=== PATIENT | male | born 1945 | race Caucasian/White ===

== ENCOUNTER → 2016-11-21 | Outpatient (REF) | payer MEDICARE, BC, OTHER ==
[~2016-11-21] MED LIST: ASPI1TAB PO; ATOR40TA PO; BENI20TA5 PO; BENI40TA5 PO; DEPA1TAB3 PO; DEPA500T2 PO; DIVA500T9 PO; FLOM5CAP PO; IRON1TAB PO; LEFL10TA2 PO; LIPI20TA PO; LUPR45IN IM; NORT25CA2 PO; PANT40TA2 PO; PLAV75TA38 PO; TYLE325T5 PO
== END | disposition home or self-care (01) ==
LOC: M LAB REF 12:30
PROVIDERS: ATTEND Internal Medicine Medical Oncology
DX: C18.9 Malignant neoplasm of colon, unspecified (principal)

== ENCOUNTER → 2017-02-13 | Outpatient (CLI) | payer MEDICARE, BC, OTHER | LOC: M SMT 09:09 | PROVIDERS: ATTEND Urology | DX: C61 Malignant neoplasm of prostate (principal) ==

== ENCOUNTER → 2017-02-28 | Outpatient (REF) | payer MEDICARE, OTHER | LOC: M SMT 13:00 | PROVIDERS: ATTEND Urology | DX: C61 Malignant neoplasm of prostate (principal); Z79.899 Other long term (current) drug therapy; Z79.82 Long term (current) use of aspirin; Z79.1 Long term (current) use of non-steroidal anti-inflammatories (NSAID) | CPT/HCPCS: 81001; 87086; 96372; G0463; J9217 ==

== ENCOUNTER → 2017-05-24 | Outpatient (REF) | payer MEDICARE, OTHER ==
[~2017-05-24] MED LIST changes: -ATOR40TA PO; +ATOR40TA75 PO; +BENI1TAB PO; -BENI20TA5 PO; +BENI40TA28 PO; -BENI40TA5 PO; +CALC600T31 PO; +COUM2.5T17 PO; +FLUO0.0216 TOP; +IRON65TA PO; +PERC5TAB12 PO; +PLAV1TAB2 PO; -PLAV75TA38 PO; +SUPETAB25 PO; +TYLE650T35 PO; +VITA1CAP7 PO
== END ==
LOC: M LAB REF 13:42
PROVIDERS: ATTEND Internal Medicine Medical Oncology
DX: C61 Malignant neoplasm of prostate (principal); C18.9 Malignant neoplasm of colon, unspecified

== ENCOUNTER → 2017-06-19 | Outpatient (CLI) | payer MEDICARE, BC, OTHER ==
--- NOTE | 2017-06-19 16:52 | REP ---
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 Recent CT of the chest abdomen and pelvis on 06/05/2017 identified two new lung nodules posteriorly in the upper lobe of the right lung. Whole-body scanning is performed from the skull base to the upper thighs. Neck and supraclavicular areas: There are no hypermetabolic foci. Chest: The two right upper lobe lung nodules demonstrate no radiotracer avidity. The superior most nodule demonstrates a maximum standard uptake value of 0.7. The nodule inferomedial to this demonstrates a standard uptake value of 0.67. There is an hypermetabolic focus in muscular tissue of the right upper arm lateral to the humeral shaft, likely within the triceps muscle with a standard uptake value of 4.9. This is nonspecific and could be related to muscular injury as well as neoplasm. There are no other foci in the chest. Abdomen, pelvis and upper thighs: There are no hypermetabolic foci. Specifically there are no hepatic foci. No skeletal foci are identified. There is non hypermetabolic uptake in the right quadriceps muscle with a standard uptake value of 2.4. Impression: The patient's two-view right lung nodules demonstrate no F D G uptake. There is muscular uptake in the left triceps and a in the right quadriceps, likely related to muscle injury although neoplasm cannot be entirely disregarded. There are no other hypermetabolic foci. The study is performed with 10 mCi of F 18 FDG. Signed by Marito Valiente MD 06/19/2017 04:44 P
== END ==
LOC: M PLARAD 12:26
PROVIDERS: ATTEND Internal Medicine Medical Oncology
DX: C18.9 Malignant neoplasm of colon, unspecified (principal); R91.8 Other nonspecific abnormal finding of lung field
CPT/HCPCS: 78815; A9552

== ENCOUNTER → 2017-08-07 | Outpatient (CLI) | payer MEDICARE, BC, OTHER ==
[2017-08-07 12:26] LABS: MEAN CORPUSCULAR HEMOGLOBIN 31.5 pg (27.0-33.0); MEAN CORPUSCULAR HGB CONC 32.6 g/dl (32.0-36.5); MEAN CORPUSCULAR VOLUME 96.7 fl (80.0-96.0); RED CELL DISTRIBUTION WIDTH 13.8 % (11.5-14.5); WHITE BLOOD COUNT 6.8 10^3/uL (4.0-10.0)
[2017-08-07 12:54] LABS: INR 0.87
[2017-08-07 13:08] LABS: ALBUMIN 3.9 GM/DL (3.2-5.2); ALBUMIN/GLOBULIN RATIO 1.11 (1.00-1.93); ALKALINE PHOSPHATASE 67 U/L (45-117); ALT/SGPT 25 U/L (12-78); ANION GAP 7 MEQ/L (8-16); AST/SGOT 24 U/L (15-37); BLOOD UREA NITROGEN 20 MG/DL (7-18); CARBON DIOXIDE LEVEL 30 MEQ/L (21-32); CHLORIDE LEVEL 102 MEQ/L (98-107); CREATININE FOR GFR 0.69 MG/DL (0.70-1.30); GLOMERULAR FILTRATION RATE > 60.0 (>42); GLUCOSE, FASTING 98 MG/DL (83-110); POTASSIUM SERUM 4.3 MEQ/L (3.5-5.1); SODIUM LEVEL 139 MEQ/L (136-145); TOTAL PROTEIN 7.4 GM/DL (6.4-8.2)
--- NOTE | 2017-08-07 13:49 | REP ---
Chest x-ray: Two views. History: History of stroke. Comparison chest x-ray September 02, 2015. Findings: The lungs are well inflated, but clear. Pleural angles are sharp. Heart is not enlarged. Pulmonary vasculature is not increased. There are mild degenerative changes in the thoracic spine as before. Impression: No active disease. Signed by Twan James MD 08/07/2017 03:33 P
--- NOTE | 2017-08-07 20:23 | ECGEPIP ---
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
== END ==
LOC: M ADMPAT 10:25
PROVIDERS: ATTEND Orthopaedic Surgery
DX: Z01.818 Encounter for other preprocedural examination (principal); M16.11 Unilateral primary osteoarthritis, right hip; I45.10 Unspecified right bundle-branch block; Z79.899 Other long term (current) drug therapy

== ENCOUNTER → 2017-08-09 | Outpatient (CLI) | payer MEDICARE, BC, OTHER | LOC: M SMT 10:40 | PROVIDERS: ATTEND Urology | DX: C61 Malignant neoplasm of prostate (principal) ==

== ENCOUNTER 2017-08-20 08:45 | Inpatient (IN) | payer MEDICARE, BC, OTHER ==
[2017-08-07 11:42] VITALS: BP 126/86
--- NOTE | 2017-08-16 14:48 | HPE ---
DATE OF ADMISSION: 08/20/2017 ATTENDING PHYSICIAN: Dr. Robyn Cyr ADMISSION DIAGNOSIS: Osteoarthritis right hip and right hip pain and stiffness. HISTORY: This is a 72-year-old male patient with progressively worsening right hip pain and stiffness. He has failed to improve with conservative management. He has elected for surgery for his continued symptoms. He has pain with weightbearing activities and activities of daily living. X-rays notable for end-stage degenerative changes of the left hip. He has consented for left total hip arthroplasty by Dr. Cyr. ALLERGIES: No known drug allergies. CURRENT MEDICATIONS: - Leflunomide 20 mg one tablet once per day - aspirin 81 mg one tablet once per day - atorvastatin 20 mg one tablet once per day - Benicar 20 mg one tablet once per day - nortriptyline 25 mg one tablet in the evening - Lupron depot one tablet every 3 months for 3 years - fluorouracil one tablet once per month - iron 325 mg one tablet once per day - over the counter vitamin D3, vitamin B, calcium with vitamin D and vitamin K - Depakote 500 mg one tablet twice a day - Flomax 0.4 mg one tablet once per day - Plavix 75 mg one tablet every day - Tylenol as needed for pain MEDICAL HISTORY: Includes: 1. Lumbar degenerative disc disease. 2. Symptomatic osteoarthritis of the right hip. 3. History of prostate cancer in 2014. 4. History of colon cancer in 2013. 5. Hypertension. 6. History of a CVA in 2006. 7. Chronic back pain. PAST SURGICAL HISTORY Includes lumbar fusion. Colon, rectal and prostate radiation. Colonoscopy. Colectomy. FAMILY HISTORY: Noncontributory. REVIEW OF SYSTEMS: Denies fevers or chills. Denies chest pain, shortness breath or cough. Denies difficulty breathing. Denies abdominal pain. Denies nausea or vomiting. Denies recent upper respiratory infection or urinary tract infection (UTI) symptoms. Has persistent pain in his right hip with weightbearing activities and activities of daily living. PHYSICAL EXAMINATION: Today reveals an elderly male patient who ambulates with a slow gait and slightly favors his right side. There is irritability with hip range of motion on the right side. Skin is intact with no erythema, edema or ecchymosis. Straight leg raise testing is negative. Well-perfused right lower extremity. Neck is supple without adenopathy or jugular venous distention (JVD) . Lungs are clear to auscultation without rales or wheeze. Heart has regular rate and rhythm. Abdomen, bowel sounds are present. VITAL SIGNS: Blood pressure 142/78, pulse 80, temperature 98.7, respirations 14, height 72 inches, weight 230 pounds. LABORATORY DATA: WBC count 6.8, RBC count of 4.5, hemoglobin 14.3, hematocrit 43.4, glucose 98, BUN 20, creatinine 0.69. Sodium 139, potassium 4.3. Urine culture no growth. Sed rate of 10. Urinalysis trace ketones, otherwise unremarkable. Nasal cultures positive for Staphylococcus aureus, he was treated per the protocol. Medical optimization by Didier Hodges is not present for review today. IMPRESSION: Symptomatic osteoarthritis right hip. PLAN: Consented for right total hip arthroplasty by Dr. Cyr.
[~2017-08-20] VITALS: Ht 185.4 cm; Wt 103.0 kg
[~2017-08-20 08:45] MED LIST changes: -COUM2.5T17 PO; -PERC5TAB12 PO
[2017-08-20] MEDS ORDERED: LR 1,000 ML IV ONE (10:00)
[2017-08-20] MEDS ORDERED: ACETAMINOPHEN 500 MG TAB PO ONE (10:00)
[2017-08-20] MEDS ORDERED: PROPOFOL 200 MG/20 ML VIAL As Ordered ONE ×2 (10:18→13:17)
[2017-08-20] MEDS ORDERED: dexameTHASONE 4 MG/ML 1ML VIAL (J1100) As Ordered ONE (10:18)
[2017-08-20] MEDS ORDERED: LIDOCAINE 2% INJ 100 MG/5 ML SDV (FOR ANES.) As Ordered ONE (10:18)
[2017-08-20] MEDS ORDERED: ONDANSETRON 4MG/2ML VIAL (J2405) As Ordered ONE (10:18)
[2017-08-20] MEDS ORDERED: fentaNYL 100 MCG/2 ML INJECTION (J3010) As Ordered ONE (10:22)
[2017-08-20] MEDS ORDERED: MIDAZOLAM INJ 2 MG/2 ML VIAL (J2250) As Ordered ONE (10:22)
[2017-08-20] MEDS ORDERED: ceFAZolin 1GM INJ (J0690) As Ordered ONE (11:33)
[2017-08-20] MEDS ORDERED: PHENYLephrine HCL 500 MCG/5 ML (100MCG/ML) SYRINGE (J2370) As Ordered ONE (13:15)
[2017-08-20] MEDS: LR 1,000 ML IV SCH ×2 (15:00→23:35)
[2017-08-20] MEDS ORDERED: MORPHINE 1MG/ML IN 0.9% NACL 100ML IV BAG IV PRN (15:00)
[2017-08-20] MEDS ORDERED: EPIDURAL/PCA KEYS XX PRN (15:00)
[2017-08-20] MEDS ORDERED: NALBUPHINE HCL 10 MG/ML AMP (J2300) IV PRN (15:00)
[2017-08-20] MEDS ORDERED: ONDANSETRON 4MG/2ML VIAL (J2405) IV PRN ×2 (15:00→15:15)
[2017-08-20] MEDS ORDERED: NALOXONE INJ 0.4 MG/1 ML VIAL (J2310) IV PRN (15:00)
[2017-08-20] MEDS ORDERED: diphenhydrAMINE INJ 50MG/ML VIAL (J1200) IV PRN (15:00)
[2017-08-20] MEDS ORDERED: fentaNYL 100 MCG/2 ML INJECTION (J3010) IV PRN (15:15)
[2017-08-20] MEDS ORDERED: HYDROmorphone HCL 1 MG/ML SYRINGE (J1170) IV PRN (15:15)
[2017-08-20] MEDS ORDERED: FLEET ENEMA PR PRN (15:15)
[2017-08-20] MEDS ORDERED: LR 1,000 ML IV SCH (15:15)
[2017-08-20] MEDS ORDERED: ACETAMINOPHEN TAB 650MG DOSE (2X325MG) PO PRN (15:15)
[2017-08-20] MEDS ORDERED: PERCOCET 5MG/325MG TAB PO PRN (15:15)
--- NOTE | 2017-08-20 15:43 | CR.PDOC ---
[facility] Consultation Consultation CONSULTATION REPORT FOR: Dr Molina REASON FOR CONSULTATION: Medical Management DATE OF VISIT: 08/20/17 ATTENDING: PCP: Tiffany CURTIS HPI: 72year old M POD #0 Rt hip CELE as per Orthopedics. No acute medical complaints at this time. Patient states pain is controlled. Denies any fevers, chills, weakness, fatigue, Headache, Chest Pain, Shortness of breath, cough, palpitations, abdominal pain, N/V/D or changes in bowel or bladder habits. Consultation is requested for medical management. PMHx: HYPERTENSION VITAMIN D DEFICIENCY PSORIASIS DEMENTIA DERMATITIS LOW BACK PAIN HYPERLIPIDEMIA RHEUMATOID ARTHRITIS. Dr Kennedi Tejada. HX OF CVA 2008. Follows with Dr Beard. H/O Seizure. Dr Beard. PROSTATE CANCER. EBRT. On Lupron. Follows with Urology, Dr Goldberg. 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 Colonoscopy 10/20 Foremost. 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 PE: GEN: 72 yo M, appears stated age. No acute distress. Alert and oriented x 3. Pleasant, interactive. HEENT: Normocephalic, atraumatic. Extraocular movements are intact. No nystagmus appreciated. Sclera are nonicteric. Conjunctiva without injection. Nose midline. No facial asymmetry. Moist mucous membranes. Neck supple, trachea midline. No lymphadenopathy or thyromegaly appreciated. CHEST: Regular rate and rhythm, +S1, +S2 LUNGS: Clear to auscultation bilaterally. No wheezes, rales, or rhonchi. Breathing appears symmetric and easy. Patient is speaking in full sentences. No accessory muscle use. ABD: Round, soft, non-tender, non-distended. +Bowel sounds throughout. No rebound or guarding. No costovertebral angle tenderness. EXT: No lower extremity edema appreciated. SKIN: [place], dry, warm. Capillary refill <2sec. No rashes. Dressing intact Rt hip. NEURO: No focal deficits appreciated. EKG 08/07/17 SINUS RHYTHM INCOMPLETE RIGHT BUNDLE BRANCH BLOCK INCOMPLETE Right bundle branch block IS NEW SINCE 09/02/15 A&P: 72year old M POD #0 Rt hip CELE as per Orthopedics. Pt will be followed by Dr Jorge. Pt is discussed with Dr Clemons. 1. POD #0 Rt hip CELE. Management as per orthopedics. Pain control as per orthopedics. Bowel care as per orthopedics. DVT prophylaxis. As per orthopedics. PT/OT as per orthopedics. 2. Hypertension. Benicar/HCTZ temporarily on hold. Blood pressure is noted to be 132/66. Likely restart in a.m. 3. Dyslipidemia. Continue statin. 4. History of CVA. Aspirin and Plavix currently on hold. Coumadin as per orthopedics as noted above. 5. History of seizure. Follows with neurology, Dr beard. Continue Depakote 500 mg by mouth twice a day. Add Depakote level to a.m. labs. 6. History of prostate cancer. Follows with urology. Continue Flomax 0.4 mg daily. Patient remains on Lupron as per urology Q6mo. 7. History of colon cancer. 8. Rheumatoid arthritis. Follows with rheumatology, Dr Kolb, at [facility]. Will allow home medication use, Leflunomide 20 mg po daily. Thank you for your consultation. We will continue to follow along with you. Vital Signs/I&O Vital Signs Date Time Temp Pulse Resp B/P (MAP) Pulse Ox O2 Delivery O2 Flow Rate FiO2 08/20/17 15:15 63 18 132/66 (88) 99 Nasal Cannula 2 08/20/17 14:41 96.9 I&O- Last 24 Hours up to 6 AM 08/21/17 06:00 Intake Total 1790 ml Output Total 600 ml Balance 1190 ml Laboratory Data Labs 24H Item Value Date Time White Blood Count 6.8 10^3/uL 08/07/17 1148 Red Blood Count 4.54 10^6/uL 08/07/17 1148 Hemoglobin 14.3 g/dl 08/07/17 1148 Hematocrit 43.9 % 08/07/17 1148 Mean Corpuscular Volume 96.7 fl H 08/07/17 1148 Mean Corpuscular Hemoglobin 31.5 pg 08/07/17 1148 Mean Corpuscular Hemoglobin Concent 32.6 g/dl 08/07/17 1148 Red Cell Distribution Width 13.8 % 08/07/17 1148 Platelet Count 262 10^3/uL 08/07/17 1148 Sodium Level 139 MEQ/L 08/07/17 1148 Potassium Level 4.3 MEQ/L 08/07/17 1148 Chloride Level 102 MEQ/L 08/07/17 1148 Carbon Dioxide Level 30 MEQ/L 08/07/17 1148 Anion Gap 7 MEQ/L L 08/07/17 1148 Blood Urea Nitrogen 20 MG/DL H 08/07/17 1148 Creatinine 0.69 MG/DL L 08/07/17 1148 Glomerular Filtration Rate > 60.0 08/07/17 1148 Fasting Glucose 98 MG/DL 08/07/17 1148 Calcium Level 10.0 MG/DL 08/07/17 1148 Total Bilirubin 1.0 MG/DL 08/07/17 1148 Aspartate Amino Transf (AST/SGOT) 24 U/L 08/07/17 1148 Alanine Aminotransferase (ALT/SGPT) 25 U/L 08/07/17 1148 Alkaline Phosphatase 67 U/L 08/07/17 1148 Total Protein 7.4 GM/DL 08/07/17 1148 Albumin 3.9 GM/DL 08/07/17 1148 Albumin/Globulin Ratio 1.11 08/07/17 1148 Prostate Specific Antigen < 0.01 NG/ML 08/09/17 1041 Allergies Coded Allergies: No Known Allergies (Verified , 12/03/07) Home Medications Scheduled (Benicar Hct 40-12.5 mg) 1 Tab Tab, 0.5 TAB PO DAILY, (Reported) (Super B Complex Maxi) 1 Tab Tab, 1 TAB PO DAILY, (Reported) (Iron) 325 Mg Tab, 325 MG PO QHS, (Reported) (Fluorouracil) 0.5 % Cre, 0.5 % TOP ASDIRECTED, (Reported) Acetaminophen (Tylenol 8 Hour Arthritis) 650 Mg Tab, 1,300 MG PO Q8H, (Reported) Aspirin (Aspirin 81) 81 Mg Tab, 81 MG PO QPM, (Reported) Atorvastatin Calcium (Atorvastatin Calcium) 40 Mg Tab, 20 MG PO QPM, (Reported) Calcium (Calcium) 600 Mg Tab, 600 MG PO DAILY, (Reported) Cholecalciferol (Vitamin D3 Maximum Streng) 5,000 Unit Cap, 5,000 UNIT PO DAILY, (Reported) Clopidogrel Bisulfate (Plavix) 75 Mg Tab, 75 MG PO DAILY, (Reported) Divalproex Sodium (Depakote ER) 500 Mg Tab, 500 MG PO BID, (Reported) Leflunomide (Leflunomide) 10 Mg Tab, 20 MG PO DAILY, (Reported) Leuprolide Acetate (Lupron Depot) 45 Mg Inj, 45 MG IM ASDIRECTED, (Reported) EVERY 6 MONTHS Nortriptyline HCl (Nortriptyline HCl) 25 Mg Cap, 25 MG PO QPM, (Reported) Tamsulosin Hydrochloride (Flomax) 0.4 Mg Cap, 0.4 MG PO QPM, (Reported) Lise Garcia Aug 20, 2017 15:43
[2017-08-20 16:00] VITALS: BP 165/82
[2017-08-20 16:30] VITALS: BP 160/85
--- NOTE | 2017-08-20 16:44 | RO ---
DATE OF PROCEDURE: 08/20/2017 PREPROCEDURE DIAGNOSIS: Right hip osteoarthritis. POSTPROCEDURE DIAGNOSIS: Right hip osteoarthritis. PROCEDURE: Right total hip arthroplasty using a high offset #8 [place] stem with a +5 neck and a 36 head with a 58 [place] cup, neutral liner, polyethylene. Components were made by [employer]. SURGEON: Dr. Robyn Cyr JAMMER OPERATOR: Mr. Navid John ANESTHESIA: Spinal. ESTIMATED BLOOD LOSS: 200 mL. COMPLICATIONS: None. SPECIMENS: Femoral head. DESCRIPTION OF PROCEDURE: Antibiotics were given intravenously preoperatively, then a successful spinal anesthetic was induced. He was then placed in a lateral decubitus position and his May hip positioner was utilized, down leg well padded, especially the peroneal nerve. Axillary roll was utilized. Right hip area was carefully prepped and draped in the usual sterile fashion and after appropriate time-out, a longitudinal incision was made for a direct lateral approach to the hip, Bovie cautery was used to coagulate crossing vessels down to the tensor fascia, which was then divided in line with the skin incision. We split the gluteus medius anterior one-third, posterior two-third junction and then divided the underlying gluteus minimus and anterior hip capsule and carefully dissected off the proximal femur as we then dislocated the hip anteriorly and placed the leg in a leg bag. Piriformis fossa was identified. Starting reamer was used to open that area, followed by the canal finder reamer, then the lateralizing reamer. Then, we reamed up to a size #8 reamer and then a femoral neck osteotomy was performed. We then used the calcar planer and then began broaching to a size #8 broach, and it was just on the edge of going up to a size #9. I looked at a #9, but clearly there was much more proximal fill and feared that would not fit, possibly fracturing the femur. I stuck with the #8. We then exposed the acetabulum, performed a labral excision 360 degrees, and once we had adequate exposure, began reaming with a 48 mm reamer down to the teardrop to make sure that we were down to the floor of the acetabulum, then expanded up to 57 mm with 1 mm increments. Trial 58 cup fit nicely using the extramedullary alignment jig to help set our version and abduction. We then copiously irrigated out as we did several times throughout the operation, then placed the real #58 cup, which fit very nicely using the extramedullary alignment jig. Central hole eliminator was placed, followed by the polyethylene that fit nicely. We then irrigated out the femoral canal, placed a #8 broach, trialed with a +1.5 neck standard offset with a 36 head. The cup was in good position. It was actually quite stable to flexion, internal rotation with adduction as well as extension, external rotation, but we needed more offset and more length and I trialed with a +5 neck length with a high offset neck and he had excellent stability and good soft tissue tension. I felt that was the appropriate size components to use. Thus, we removed all of the trial components, copiously pulsatile lavage irrigated out the entire wound, including the femoral canal, then placed the real #8 stem, dried the trunnion, placed the 36 by +5 neck on the trunnion, then reduced the hip. We then closed the gluteus medius and anterior hip capsule with the gluteus minimus back anatomically with interrupted #1 PDS sutures. We then irrigated copiously, then closed the distal aspect of the tensor fascia with two #1 PDS sutures, followed by a running #1 Stratafix, irrigated between layers, closed the deep subdermal tissues with interrupted #2-0 PDS sutures, skin was closed with brynn, covered by Adaptic dry sterile bulky dressing. He was then turned supine and transferred to the recovery room in stable condition. There were no intraoperative complications. Mr. Navid John was critical to the success of the operation by helping with manipulating the leg and dislocating it and relocating the hip several times throughout the operation, helped with soft tissue retraction, helped to close the wound amongst many other tasks.
[2017-08-20] MEDS ORDERED: WARFARIN SOD 5 MG TAB PO ONE (17:00)
[2017-08-20 17:30] VITALS: BP 144/88
[2017-08-20 18:30] VITALS: BP 147/92
[2017-08-20 20:15] VITALS: BP 149/85
[2017-08-20] MEDS: ATORVASTATIN 20 MG TAB PO SCH (21:30)
[2017-08-20] MEDS: DIVALPROEX 500MG *ER* TAB PO SCH (21:30)
[2017-08-20] MEDS: TAMSULOSIN 0.4 MG CAP PO SCH (21:30)
[2017-08-21 00:15] VITALS: BP 136/86
[2017-08-21 04:15] VITALS: BP 138/88
[2017-08-21] MEDS ORDERED: ONDANSETRON 4 MG TAB (S0181) PO PRN (07:00)
[2017-08-21] MEDS ORDERED: PERCOCET 5MG/325MG TAB PO PRN (07:00)
[2017-08-21 07:16] LABS: MEAN CORPUSCULAR HGB CONC 33.1 g/dl (32.0-36.5); MEAN CORPUSCULAR VOLUME 96.7 fl (80.0-96.0); PLATELET COUNT, AUTOMATED 236 10^3/uL (150-450); RED CELL DISTRIBUTION WIDTH 13.6 % (11.5-14.5); WHITE BLOOD COUNT 12.4 10^3/uL (4.0-10.0)
[2017-08-21 07:18] LABS: ADD MANUAL DIFFER YES; DIFF SLIDE NUMBER 83; POSITIVE DIFF POS FLAG
[2017-08-21 07:28] LABS: INR 1.01
[2017-08-21 07:49] LABS: ANISOCYTOSIS 1+; BASOPHILS 2 % (0-4); EOSINOPHILS 2 % (0-5)
[2017-08-21 07:52] LABS: ALBUMIN 3.1 GM/DL (3.2-5.2); ALBUMIN/GLOBULIN RATIO 0.97 (1.00-1.93); ALKALINE PHOSPHATASE 51 U/L (45-117); ALT/SGPT 22 U/L (12-78); ANION GAP 5 MEQ/L (8-16); AST/SGOT 35 U/L (15-37); BILIRUBIN,TOTAL 0.7 MG/DL (0.2-1.0); BLOOD UREA NITROGEN 15 MG/DL (7-18); CALCIUM LEVEL 8.7 MG/DL (8.8-10.2); CARBON DIOXIDE LEVEL 30 MEQ/L (21-32); CHLORIDE LEVEL 105 MEQ/L (98-107); CREATININE FOR GFR 0.73 MG/DL (0.70-1.30); GLOMERULAR FILTRATION RATE > 60.0 (>42); GLUCOSE, FASTING 144 MG/DL (83-110); SODIUM LEVEL 140 MEQ/L (136-145); TOTAL PROTEIN 6.3 GM/DL (6.4-8.2)
[2017-08-21 10:00] VITALS: BP 141/93
--- NOTE | 2017-08-21 10:49 | REP ---
RIGHT HIP, THREE VIEWS: HISTORY: Hip replacement. The patient is status post right total hip replacement. There is no acute fracture or dislocation. IMPRESSION: The patient is status post right total hip replacement. There is anatomic alignment. Signed by Karson Cannon MD 08/21/2017 10:51 A
[2017-08-21] MEDS: DIVALPROEX 500MG *ER* TAB PO SCH ×2 (11:06→20:20)
[2017-08-21] MEDS: MOM 30ML SUSPENSION UDC PO SCH (11:07)
[2017-08-21] MEDS: SENOKOT S TAB PO SCH ×2 (11:07→20:22)
[2017-08-21] MEDS: LEFLUNOMIDE 20MG TABLET (PATIENT'S OWN MED) PO SCH (11:07)
[2017-08-21] MEDS: MIRALAX *UNIT DOSE* 17GM PACKET PO SCH (11:07)
[2017-08-21] MEDS: PERCOCET 5MG/325MG TAB PO PRN ×3 (11:08→20:21)
[2017-08-21 14:00] VITALS: BP 115/57
[2017-08-21] MEDS ORDERED: WARFARIN SOD 5 MG TAB PO ONE (17:00)
[2017-08-21] MEDS: ATORVASTATIN 20 MG TAB PO SCH (20:21)
[2017-08-21] MEDS: TAMSULOSIN 0.4 MG CAP PO SCH (20:22)
[2017-08-21 22:00] VITALS: BP 144/63
[2017-08-22] MEDS: PERCOCET 5MG/325MG TAB PO PRN ×3 (02:04→21:29)
[2017-08-22 06:00] VITALS: BP 122/78
[2017-08-22 07:00] LABS: MEAN CORPUSCULAR HEMOGLOBIN 31.1 pg (27.0-33.0); MEAN CORPUSCULAR HGB CONC 32.1 g/dl (32.0-36.5); RED CELL DISTRIBUTION WIDTH 13.7 % (11.5-14.5); WHITE BLOOD COUNT 12.5 10^3/uL (4.0-10.0)
[2017-08-22 07:11] LABS: INR 1.25
[2017-08-22 07:17] LABS: ANION GAP 3 MEQ/L (8-16); BLOOD UREA NITROGEN 16 MG/DL (7-18); CALCIUM LEVEL 8.5 MG/DL (8.8-10.2); CARBON DIOXIDE LEVEL 33 MEQ/L (21-32); CHLORIDE LEVEL 103 MEQ/L (98-107); CREATININE FOR GFR 0.71 MG/DL (0.70-1.30); GLOMERULAR FILTRATION RATE > 60.0 (>42); GLUCOSE, FASTING 141 MG/DL (83-110); SODIUM LEVEL 139 MEQ/L (136-145)
[2017-08-22] MEDS: SENOKOT S TAB PO SCH ×2 (09:00→21:28)
[2017-08-22] MEDS: MIRALAX *UNIT DOSE* 17GM PACKET PO SCH (09:00)
[2017-08-22] MEDS ORDERED: INFLUENZA VIRUS VACCINE HIGH DOSE 0.5 ML SYRINGE (90662) IM ONE (09:00)
[2017-08-22] MEDS: LEFLUNOMIDE 20MG TABLET (PATIENT'S OWN MED) PO SCH (09:34)
[2017-08-22] MEDS: DIVALPROEX 500MG *ER* TAB PO SCH ×2 (09:34→21:28)
[2017-08-22] MEDS: MOM 30ML SUSPENSION UDC PO SCH (09:38)
[2017-08-22 14:00] VITALS: BP 152/72
[2017-08-22] MEDS ORDERED: WARFARIN SOD 7.5 MG TAB PO ONE (17:00)
[2017-08-22] MEDS: TAMSULOSIN 0.4 MG CAP PO SCH (21:28)
[2017-08-22] MEDS: ATORVASTATIN 20 MG TAB PO SCH (21:28)
[2017-08-22 22:00] VITALS: BP 124/77
[2017-08-23] MEDS: PERCOCET 5MG/325MG TAB PO PRN (05:55)
[2017-08-23 06:00] VITALS: BP 130/79
[2017-08-23 07:14] LABS: MEAN CORPUSCULAR HEMOGLOBIN 31.6 pg (27.0-33.0); MEAN CORPUSCULAR HGB CONC 32.2 g/dl (32.0-36.5); MEAN CORPUSCULAR VOLUME 98.3 fl (80.0-96.0); RED CELL DISTRIBUTION WIDTH 13.9 % (11.5-14.5)
[2017-08-23 07:23] LABS: INR 1.18
[2017-08-23 07:25] LABS: ANION GAP 6 MEQ/L (8-16); BLOOD UREA NITROGEN 17 MG/DL (7-18); CALCIUM LEVEL 8.4 MG/DL (8.8-10.2); CARBON DIOXIDE LEVEL 31 MEQ/L (21-32); CHLORIDE LEVEL 100 MEQ/L (98-107); CREATININE FOR GFR 0.66 MG/DL (0.70-1.30); GLOMERULAR FILTRATION RATE > 60.0 (>42); GLUCOSE, FASTING 147 MG/DL (83-110); SODIUM LEVEL 137 MEQ/L (136-145)
[2017-08-23] MEDS ORDERED: ENOXAPARIN 40 MG/0.4 ML SYRINGE (J1650) SC ONE (08:45)
[2017-08-23] MEDS ORDERED: PERC5TAB12 PO (08:50)
[2017-08-23] MEDS ORDERED: COUM2.5T17 PO (08:50)
[2017-08-23] MEDS: MIRALAX *UNIT DOSE* 17GM PACKET PO SCH (09:00)
[2017-08-23] MEDS: MOM 30ML SUSPENSION UDC PO SCH (09:00)
[2017-08-23] MEDS: SENOKOT S TAB PO SCH (10:13)
[2017-08-23] MEDS: LEFLUNOMIDE 20MG TABLET (PATIENT'S OWN MED) PO SCH (10:14)
[2017-08-23] MEDS: DIVALPROEX 500MG *ER* TAB PO SCH (10:14)
--- NOTE | 2017-08-28 16:31 | DSES ---
DATE OF ADMISSION: 08/20/2017 DATE OF DISCHARGE: 08/23/2017 ATTENDING PHYSICIAN: Dr Robyn Cyr ADMITTING DIAGNOSIS: Right hip arthritis. OTHER DIAGNOSES: 1. Lumber degenerative disc disease. 2. History of prostate cancer. 3. History of colon cancer. 4. Hypertension. 5. History of cerebrovascular accident. DISCHARGE DIAGNOSIS: Right hip osteoarthritis status post right total hip arthroplasty. HISTORY: Patient is a 72-year-old male with progressively worsening right hip pain and stiffness. He failed to improve with conservative measures. He continues to have symptoms with weightbearing activities and activities of daily living. He consented for an elective right total hip arthroplasty with Dr. Cyr. OPERATION PERFORMED: Right total hip arthroplasty. HOSPITAL COURSE: The patient underwent a right total hip arthroplasty under spinal anesthesia, which as uneventful. His hospital course was without complication, and he was up with physical therapy per their protocol, weightbearing as tolerated on the right lower extremity. He was discharged on oral pain medications and will resume his preoperative medications and diet. He will continue to take his Coumadin and use his thromboembolic deterrent stockings for 30 days postoperatively to prevent deep vein thrombosis. Patient will followup in our office in 12-14 days for a wound check and staple removal. He agrees to contact our office sooner if there is any increased pain, drainage, redness, numbness and tingling, fever greater than 101 degrees, or any other concerns. Please see medical record for additional details. DANIEL
== END 2017-08-23 15:10 | disposition home health service (06) | DRG 470 ==
LOC: M OR 09:43 → M MS5PR 15:45
PROVIDERS: ADMIT Orthopaedic Surgery; ATTEND Orthopaedic Surgery
PROC: 0SR902Z Replacement of Right Hip Joint with Metal on Polyethylene Synthetic Substitute, Open Approach (ICD-10-PCS; principal; 2017-08-20 12:30)
DX: M16.11 Unilateral primary osteoarthritis, right hip (principal); M51.36 Other intervertebral disc degeneration, lumbar region; I10 Essential (primary) hypertension; E78.5 Hyperlipidemia, unspecified; M06.9 Rheumatoid arthritis, unspecified; L40.9 Psoriasis, unspecified; E55.9 Vitamin D deficiency, unspecified; Z86.73 Personal history of transient ischemic attack (TIA), and cerebral infarction without residual deficits; Z79.82 Long term (current) use of aspirin; Z79.02 Long term (current) use of antithrombotics/antiplatelets; Z79.899 Other long term (current) drug therapy; Z98.1 Arthrodesis status; Z90.49 Acquired absence of other specified parts of digestive tract; Z85.46 Personal history of malignant neoplasm of prostate; Z85.038 Personal history of other malignant neoplasm of large intestine; Z92.3 Personal history of irradiation; Z85.828 Personal history of other malignant neoplasm of skin

== ENCOUNTER → 2017-08-24 | Outpatient (REF) | payer MEDICARE, OTHER ==
[~2017-08-24] MED LIST changes: +COUM2.5T17 PO; +PERC5TAB12 PO
[2017-08-24 13:28] LABS: INR 1.32
== END ==
LOC: M SHH 13:01
PROVIDERS: ATTEND Nurse Practitioner Family
DX: Z51.81 Encounter for therapeutic drug level monitoring (principal); Z79.01 Long term (current) use of anticoagulants

== ENCOUNTER → 2017-11-28 | Outpatient (REF) | payer MEDICARE, OTHER ==
[2017-11-28 20:54] LABS: PROSTATIC SPECIFIC AG MONITOR < 0.01 NG/ML (< 4.0)
[2017-11-30 10:30] LABS: CARCINOEMBRYONIC ANTIGEN 0.7 NG/ML (<2.5)
== END ==
LOC: M LAB REF 17:48
DX: C18.2 Malignant neoplasm of ascending colon (principal); C61 Malignant neoplasm of prostate; Z84.81 Family history of carrier of genetic disease
CPT/HCPCS: 82378

== ENCOUNTER → 2017-12-04 | Outpatient (CLI) | payer MEDICARE, OTHER, BC ==
[~2017-12-04] MED LIST changes: -ASPI1TAB PO; -ATOR40TA75 PO; -BENI1TAB PO; -BENI40TA28 PO; -CALC600T31 PO; -COUM2.5T17 PO; -DEPA1TAB3 PO; -DEPA500T2 PO; -DIVA500T9 PO; -FLOM5CAP PO; -FLUO0.0216 TOP; -IRON1TAB PO; -IRON65TA PO; +ISOVUE-370 76% 100ML VIAL (Q9967) As Ordered; -LEFL10TA2 PO; -LIPI20TA PO; -LUPR45IN IM; -NORT25CA2 PO; -PANT40TA2 PO; -PERC5TAB12 PO; -PLAV1TAB2 PO; -SUPETAB25 PO; -TYLE325T5 PO; -TYLE650T35 PO; -VITA1CAP7 PO
== END ==
LOC: M RAD 07:19
DX: C18.9 Malignant neoplasm of colon, unspecified (principal); R91.8 Other nonspecific abnormal finding of lung field
CPT/HCPCS: Q9967

== ENCOUNTER → 2018-03-18 | Outpatient (REF) | payer MEDICARE, OTHER ==
[2018-03-18 14:41] LABS: PROSTATIC SPECIFIC AG MONITOR < 0.01 NG/ML (< 4.0)
[2018-03-19 10:40] LABS: CARCINOEMBRYONIC ANTIGEN 0.6 NG/ML (<2.5)
== END ==
LOC: M LAB REF 13:12
DX: C61 Malignant neoplasm of prostate (principal)
CPT/HCPCS: 82378

== ENCOUNTER → 2018-06-12 | Outpatient (REF) | payer MEDICARE, OTHER ==
[2018-06-12 14:06] LABS: PROSTATIC SPECIFIC AG MONITOR < 0.01 NG/ML (< 4.0)
== END ==
LOC: M LAB REF 13:20
DX: C18.2 Malignant neoplasm of ascending colon (principal); C61 Malignant neoplasm of prostate; Z15.09 Genetic susceptibility to other malignant neoplasm
CPT/HCPCS: 84153

== ENCOUNTER → 2018-06-19 | Outpatient (CLI) | payer MEDICARE, BC, OTHER ==
[~2018-06-19] MED LIST changes: +GASTROGRAFIN SOLUTION 30ML (Q9963) As Ordered
== END ==
LOC: M RAD 10:41
DX: M16.12 Unilateral primary osteoarthritis, left hip (principal); M51.34 Other intervertebral disc degeneration, thoracic region; Z80.0 Family history of malignant neoplasm of digestive organs; Z84.1 Family history of disorders of kidney and ureter; Z85.46 Personal history of malignant neoplasm of prostate
CPT/HCPCS: Q9963

== ENCOUNTER → 2018-08-28 | Outpatient (CLI) | payer MEDICARE, BC, OTHER ==
[2018-08-28 17:35] LABS: PROSTATIC SPECIFIC AG MONITOR < 0.01 NG/ML (< 4.0)
== END ==
LOC: M SMT 10:44
DX: Z85.46 Personal history of malignant neoplasm of prostate (principal)
CPT/HCPCS: 84153

== ENCOUNTER → 2019-01-06 | Outpatient (REF) | payer MEDICARE, OTHER ==
[~2019-01-06] MED LIST changes: +ACET500T15 PO; +ASPI1TAB PO; +ATOR40TA75 PO; +BENI1TAB3 PO; +BENI40TA28 PO; +CALC600T31 PO; +COUM2.5T17 PO; +DEPA1TAB3 PO; +DEPA500T2 PO; +DIVA500T9 PO; +FLOM0.4C39 PO; +FLUO0.0216 TOP; -GASTROGRAFIN SOLUTION 30ML (Q9963) As Ordered; +IRON1TAB PO; +IRON65TA PO; -ISOVUE-370 76% 100ML VIAL (Q9967) As Ordered; +LEFL10TA2 PO; +LEFL1TAB4 PO; +LIPI20TA PO; +LUPR45IN IM; +NORT25CA2 PO; +OLME1TAB13 PO; +PANT40TA3 PO; +PERC5TAB12 PO; +PLAV1TAB2 PO; +SUPETAB25 PO; +TYLE325T5 PO; +TYLE650T35 PO; +VITA1CAP7 PO
== END ==
LOC: M LAB REF 11:08
PROVIDERS: ATTEND Surgery
DX: D48.5 Neoplasm of uncertain behavior of skin (principal)

== ENCOUNTER 2019-02-11 07:54 | Day surgery (SDC) | payer MEDICARE, BC, OTHER ==
[~2019-02-11] VITALS: Ht 188 cm; Wt 96.6 kg
[~2019-02-11 07:54] MED LIST changes: -ASPI1TAB PO; +ASPI81TA26 PO; +D-3-50003 PO; +NS 1,000 ML IV ONE; -VITA1CAP7 PO
[2019-02-11] MEDS ORDERED: PROPOFOL 200 MG/20 ML VIAL As Ordered ONE (08:50)
[2019-02-11] MEDS ORDERED: LIDOCAINE 2% INJ 100 MG/5 ML SDV (FOR ANES.) As Ordered ONE (08:50)
[2019-02-11] MEDS ORDERED: ROCURONIUM BROMIDE 50 MG/5 ML VIAL As Ordered ONE (09:04)
[2019-02-11 10:07] VITALS: BP 124/77
--- NOTE | 2019-02-11 10:23 | ROOR ---
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 Providers: Rogelio Roberts MD Referring MD: EVER JENSEN Requesting Provider: Medicines: Monitored Anesthesia Care Complications: No immediate complications. Procedure: Pre-Anesthesia Assessment: - Prior to the procedure, a History and Physical was performed, and patient medications and allergies were reviewed. The patient is competent. The risks and benefits of the procedure and the sedation options and risks were discussed with the patient. All questions were answered and informed consent was obtained. Patient identification and proposed procedure were verified by the physician, the nurse and the training program developer in the procedure room. Mental Status Examination: alert and oriented. CV Examination: regular rate and rhythm. Prophylactic Antibiotics: The patient does not require prophylactic antibiotics. Prior Anticoagulants: The patient has taken no previous anticoagulant or antiplatelet agents. ASA Grade Assessment: II - A patient with mild systemic disease. After reviewing the risks and benefits, the patient was deemed in satisfactory condition to undergo the procedure. The anesthesia plan was to use monitored anesthesia care (MAC). Immediately prior to administration of medications, the patient was re-assessed for adequacy to receive sedatives. The heart rate, respiratory rate, oxygen saturations, blood pressure, adequacy of pulmonary ventilation, and response to care were monitored throughout the procedure. The physical status of the patient was re-assessed after the procedure. The Colonoscope was introduced through the anus and advanced to the ileocolonic anastomosis. The colonoscopy was performed without difficulty. The patient tolerated the procedure well. The quality of the bowel preparation was excellent. Findings: The perianal and digital rectal examinations were normal. There was evidence of a prior functional end-to-end ileo-colonic anastomosis in the proximal transverse colon. This was characterized by healthy appearing mucosa. The mucosa vascular pattern in the distal rectum was locally consistent with his history of prostate radiation. The exam was otherwise without abnormality. Impression: - Functional end-to-end ileo-colonic anastomosis, characterized by healthy appearing mucosa. - Consistent with his history of prostate radiation. mucosa vascular pattern in the distal rectum. - The examination was otherwise normal. - No specimens collected. Recommendation: - Discharge patient to home. - Resume previous diet. - Continue present medications. - Repeat colonoscopy in 3 years for surveillance. Rogelio Roberts MD Rogelio Roberts MD 02/11/2019 10:22:45 AM Electronically signed by Rogelio Roberts MD Number of Addenda: 0 Note Initiated On: 02/11/2019 9:14 AM Estimated Blood Loss: Estimated blood loss: none.
[2019-02-11] MEDS ORDERED: VASOPRESSIN INJ 20 UNITS/ML VIAL As Ordered ONE (10:48)
== END 2019-02-11 10:35 | disposition home or self-care (01) ==
LOC: M OPP 07:54
PROVIDERS: ATTEND Surgery
DX: Z85.038 Personal history of other malignant neoplasm of large intestine (principal); Z98.0 Intestinal bypass and anastomosis status

== ENCOUNTER → 2019-02-26 | Outpatient (CLI) | payer MEDICARE, BC, OTHER ==
[~2019-02-26] MED LIST changes: -NS 1,000 ML IV ONE
== END ==
LOC: M SMT 10:41
PROVIDERS: ATTEND Nurse Practitioner Women's Health
DX: Z85.46 Personal history of malignant neoplasm of prostate (principal)

== ENCOUNTER → 2019-06-11 | Outpatient (CLI) | payer MEDICARE, BC, OTHER ==
[~2019-06-11] MED LIST changes: +GASTROGRAFIN SOLUTION 30ML (Q9963) As Ordered ONE; +ISOVUE-370 76% 100ML VIAL (Q9967) As Ordered ONE
--- NOTE | 2019-06-11 14:28 | REP ---
REASON: History of colon cancer. All prior chest CTs and related lung base images were reviewed. The latest prior chest CT is 06/19/2018. CONTRAST: 100 mL Isovue 370. The mediastinum and pulmonary hannah are unchanged. There is no evidence of a mass or adenopathy. There are no pleural or pericardial effusions. There is no significant change in the appearance of the imaged osseous structures. Evaluation of the lung guzman show no new abnormal nodules, masses, or opacities. IMPRESSION: No acute disease or significant change from the prior exams, the latest of which is dated 06/19/2018. Electronically Signed by Rashi Patrick DO 06/11/2019 05:14 P
--- NOTE | 2019-06-11 14:36 | REP ---
REASON: History of colon carcinoma. All priors were reviewed, the latest of which is dated 06/19/2018. CONTRAST: 100 mL of Isovue 370. The liver, gallbladder, spleen, pancreas, adrenal glands, and kidneys are unchanged. The abdominal aorta and paraaortic regions are unchanged. The bowel loops and their mesenteries are unchanged. There is no evidence of an intra-abdominal mass or adenopathy. There is no free fluid or free air. CT PELVIS: The bowel loops and their mesenteries are unchanged. There is no evidence of a pelvic mass or adenopathy. There is no free fluid or free air. Bone window technique throughout the exam shows no significant change in the appearance of the osseous structures. IMPRESSION: Stable CT findings. There is no evidence of acute disease. Electronically Signed by Rashi Patrick DO 06/11/2019 05:14 P
== END ==
LOC: M RAD 10:43
PROVIDERS: ATTEND Nurse Practitioner Family
DX: Z85.038 Personal history of other malignant neoplasm of large intestine (principal)
CPT/HCPCS: 71260; 74177; 80053; 82378; 84153; 85027; Q9963; Q9967

== ENCOUNTER → 2019-06-11 | Outpatient (REF) | payer MEDICARE, OTHER ==
[~2019-06-11] MED LIST changes: -GASTROGRAFIN SOLUTION 30ML (Q9963) As Ordered ONE; -ISOVUE-370 76% 100ML VIAL (Q9967) As Ordered ONE
[2019-06-11 11:37] LABS: HEMATOCRIT 42.8 % (42.0-52.0); HEMOGLOBIN 13.8 g/dl (13.5-17.5); MEAN CORPUSCULAR HEMOGLOBIN 32.3 pg (27.0-33.0); MEAN CORPUSCULAR HGB CONC 32.2 g/dl (32.0-36.5); MEAN CORPUSCULAR VOLUME 100.2 fl (80.0-96.0); PLATELET COUNT, AUTOMATED 237 10^3/uL (150-450); RED BLOOD COUNT 4.27 10^6/uL (4.30-6.10); WHITE BLOOD COUNT 6.7 10^3/uL (4.0-10.0)
[2019-06-11 11:59] LABS: ALBUMIN 3.7 GM/DL (3.2-5.2); ALT/SGPT 20 U/L (12-78); BILIRUBIN,TOTAL 0.7 MG/DL (0.2-1.0); BLOOD UREA NITROGEN 20 MG/DL (7-18); CALCIUM LEVEL 9.6 MG/DL (8.8-10.2); CARBON DIOXIDE LEVEL 31 MEQ/L (21-32); CHLORIDE LEVEL 106 MEQ/L (98-107); CREATININE FOR GFR 0.75 MG/DL (0.70-1.30); GLOMERULAR FILTRATION RATE > 60.0 (>42); GLUCOSE, FASTING 113 MG/DL (70-100); POTASSIUM SERUM 4.1 MEQ/L (3.5-5.1); PROSTATIC SPECIFIC AG MONITOR < 0.01 NG/ML (< 4.00); SODIUM LEVEL 142 MEQ/L (136-145)
== END ==
LOC: M LAB REF 11:14
PROVIDERS: ATTEND Internal Medicine Medical Oncology
DX: Z85.038 Personal history of other malignant neoplasm of large intestine (principal)

== ENCOUNTER → 2019-09-05 | Outpatient (CLI) | payer MEDICARE, BC, OTHER ==
[~2019-09-05] MED LIST changes: +CALCTAB7 PO; +IRON65TA2 PO; +SUPETAB56 PO
== END ==
LOC: M SMT 09:45
PROVIDERS: ATTEND Urology
DX: C61 Malignant neoplasm of prostate (principal)

== ENCOUNTER → 2020-03-11 | Outpatient (CLI) | payer MEDICARE, BC, OTHER ==
[~2020-03-11] MED LIST changes: -OLME1TAB13 PO; +OLME1TAB45 PO
== END ==
LOC: M LAB 14:58
PROVIDERS: ATTEND Urology
DX: C61 Malignant neoplasm of prostate (principal)

== ENCOUNTER → 2020-07-16 | Outpatient (CLI) | payer MEDICARE, BC, OTHER ==
[~2020-07-16] MED LIST changes: +ACET650T61 PO; +CALC-211 PO; -CALCTAB7 PO; +GASTROGRAFIN SOLUTION 30ML (Q9963) As Ordered ONE; +ISOVUE-370 76% 100ML VIAL As Ordered ONE; +PANT40TA29 PO; -PANT40TA3 PO; -TYLE650T35 PO
--- NOTE | 2020-08-05 11:05 | REP ---
CONTRAST ENHANCED CT ABDOMEN AND PELVIS CLINICAL: History of colon and prostate cancer for follow-up. COMPARISON: 06/11/2019. TECHNIQUE: Axial contrast enhanced images from the lung bases to the pubic symphysis using oral (per protocol) and 100 mL Isovue-370 intravenous contrast material with precontrast images of the abdomen and delayed images of the abdomen, as well as coronal and sagittal reformations. FINDINGS: Liver, spleen, pancreas, gallbladder, and bilateral adrenal glands are normal in all phases of evaluation. The kidneys are essentially normal with the exception of a 2.2 cm right renal cyst. Evaluation of the enteric system demonstrates mild fecal stasis without obstruction or acute inflammatory process. Evidence for prior surgery at the level of the cecum. Pelvis demonstrates collapsed bladder and evidence for prior prostate surgery. No ascites. No free air. No adenopathy. Atherosclerotic changes to the aorta and vasculature noted without aneurysm or dissection. Musculoskeletal structures demonstrate age-related degenerative changes along with evidence for prior posterior fixation at L4-5 and right hip replacement. No focal osseous abnormality identified to suggest metastatic disease. IMPRESSION: * No acute abdominopelvic pathology appreciated. * Right renal cyst. * No ascites, focal inflammatory stranding, or adenopathy. MTDD
== END ==
LOC: M RAD 11:04
PROVIDERS: ATTEND Internal Medicine Hematology & Oncology
DX: N28.1 Cyst of kidney, acquired (principal); C61 Malignant neoplasm of prostate; C18.9 Malignant neoplasm of colon, unspecified
CPT/HCPCS: 71260; 74178; Q9963; Q9967

== ENCOUNTER → 2021-03-21 | Outpatient (REF) | payer MEDICARE, OTHER ==
[~2021-03-21] MED LIST changes: +D31000TA2 PO; -GASTROGRAFIN SOLUTION 30ML (Q9963) As Ordered ONE; -ISOVUE-370 76% 100ML VIAL As Ordered ONE; +MUPI2OI TOP; -OLME1TAB45 PO; +OLME1TAB51 PO
== END ==
LOC: M PLALAB 08:47
PROVIDERS: ATTEND Urology
DX: C61 Malignant neoplasm of prostate (principal)

== ENCOUNTER → 2021-10-04 | Outpatient (CLI) | payer MEDICARE, OTHER | LOC: M WUC 11:51 | PROVIDERS: ATTEND Nurse Practitioner Women's Health | DX: C61 Malignant neoplasm of prostate (principal) ==

== ENCOUNTER → 2022-03-30 | Outpatient (CLI) | payer MEDICARE, BC, OTHER ==
[~2022-03-30] MED LIST changes: -D31000TA2 PO; +DONE5TAB82 PO; +OLME40TA PO; +SUPETAB44 PO; +VITA-243 PO; +VITA100093 PO
== END ==
LOC: M LABSMTC 09:20
PROVIDERS: ATTEND Anesthesiology
DX: Z01.818 Encounter for other preprocedural examination (principal); Z11.52 Encounter for screening for COVID-19

== ENCOUNTER 2022-04-04 09:46 | Day surgery (SDC) | payer MEDICARE, BC, OTHER ==
[~2022-04-04] VITALS: Ht 190.5 cm; Wt 94.3 kg
[~2022-04-04 09:46] MED LIST changes: +NS 1,000 ML IV ONE
[2022-04-04] MEDS ORDERED: LIDOCAINE 2% 100MG/5ML SDV (FOR ANES.) As Ordered ONE (12:23)
[2022-04-04] MEDS ORDERED: propofoL 200 MG/20 ML VIAL As Ordered ONE (12:23)
[2022-04-04 13:00] VITALS: BP 129/79
== END 2022-04-04 13:14 | disposition home or self-care (01) ==
LOC: M OPP 09:46
PROVIDERS: ATTEND Surgery
DX: Z12.11 Encounter for screening for malignant neoplasm of colon (principal); Z85.038 Personal history of other malignant neoplasm of large intestine; K55.20 Angiodysplasia of colon without hemorrhage; K64.8 Other hemorrhoids; Z98.0 Intestinal bypass and anastomosis status; Z86.73 Personal history of transient ischemic attack (TIA), and cerebral infarction without residual deficits; Z85.46 Personal history of malignant neoplasm of prostate; Z85.828 Personal history of other malignant neoplasm of skin; Z84.0 Family history of diseases of the skin and subcutaneous tissue; Z80.41 Family history of malignant neoplasm of ovary; Z79.1 Long term (current) use of non-steroidal anti-inflammatories (NSAID); Z79.82 Long term (current) use of aspirin; Z79.51 Long term (current) use of inhaled steroids; Z79.899 Other long term (current) drug therapy; Z91.048 Other nonmedicinal substance allergy status
CPT/HCPCS: 93005; G0105

== ENCOUNTER → 2022-04-27 | Outpatient (CLI) | payer MEDICARE, BC, OTHER ==
[~2022-04-27] MED LIST changes: -NS 1,000 ML IV ONE
== END ==
LOC: M PLAIMG 09:40
PROVIDERS: ATTEND Pain Medicine Interventional Pain Medicine
DX: M25.552 Pain in left hip (principal)

== ENCOUNTER → 2023-01-03 | Outpatient (CLI) | payer MEDICARE, BC, OTHER ==
[~2023-01-03] MED LIST changes: -BENI1TAB3 PO; -BENI40TA28 PO; +CLOP75TA99 PO; +OLME-2 PO; +OLME20TA55 PO; -PLAV1TAB2 PO
== END ==
LOC: M WUC 10:34
PROVIDERS: ATTEND Physician Assistant
DX: M25.522 Pain in left elbow (principal); M25.532 Pain in left wrist

== ENCOUNTER → 2023-02-27 | Outpatient (CLI) | payer MEDICARE, BC, OTHER | LOC: M RAD 06:44 | PROVIDERS: ATTEND Internal Medicine Medical Oncology | DX: N28.1 Cyst of kidney, acquired (principal); E80.6 Other disorders of bilirubin metabolism ==

== ENCOUNTER → 2023-05-01 | Outpatient (REF) | payer MEDICARE, BC, OTHER ==
[2023-05-01 14:56] LABS: CHOLESTEROL RISK RATIO 2.46 (<5); HDL CHOLESTEROL 53.5 MG/DL (>40); LDL CHOLESTEROL 61.9 MG/DL (<100); NON-HDL-C 78.5 MG/DL
[2023-05-01 14:58] LABS: THYROID STIMULATING HORMONE 0.756 uIU/ML (0.55-4.78)
== END ==
LOC: M LABDRWAD 12:19
PROVIDERS: ATTEND Physician Assistant
DX: E78.5 Hyperlipidemia, unspecified (principal)

== ENCOUNTER → 2023-07-18 | Outpatient (CLI) | payer MEDICARE, BC, OTHER | LOC: M PLAIMG 09:11 | PROVIDERS: ATTEND Physician Assistant | DX: R29.6 Repeated falls (principal) ==

== ENCOUNTER 2024-01-04 05:23 | Inpatient (IN) | payer MEDICARE, BC, OTHER ==
[~2024-01-04] VITALS: Ht 177.8 cm; Wt 81.8 kg
[~2024-01-04 05:23] MED LIST changes: -LEFL1TAB4 PO; +LEFL20TA15 PO
[2024-01-04 08:24] LABS: BASO % 0.3 % (0.0-1.0); EOS % 0.2 % (0.0-3.0); HEMATOCRIT 35.8 % (42.0-52.0); HEMOGLOBIN 11.7 g/dl (13.5-17.5); LYMPH # 0.3 10^3/uL (1.5-5.0); LYMPH % 2.7 % (24.0-44.0); MEAN CORPUSCULAR HEMOGLOBIN 32.2 pg (27.0-33.0); MEAN CORPUSCULAR HGB CONC 32.7 g/dl (32.0-36.5); MEAN CORPUSCULAR VOLUME 98.6 fl (80.0-96.0); MONO # 0.9 10^3/uL (0.0-0.8); MONO % 7.5 % (2.0-8.0); NEUTROPHILS # 11.2 10^3/uL (1.5-8.5); NEUTROPHILS % 88.9 % (36.0-66.0); PLATELET COUNT, AUTOMATED 203 10^3/uL (150-450); RED BLOOD COUNT 3.63 10^6/uL (4.30-6.10); WHITE BLOOD COUNT 12.5 10^3/uL (4.0-10.0)
[2024-01-04 08:37] LABS: INR 1.18; PARTIAL THROMBOPLASTIN TIME 30.5 SECONDS (24.8-34.2); PROTHROMBIN TIME 14.6 SECONDS (12.5-14.5)
[2024-01-04 08:50] LABS: BLOOD UREA NITROGEN 17 MG/DL (9-23); CALCIUM LEVEL 8.7 MG/DL (8.3-10.6); CARBON DIOXIDE LEVEL 31 MMOL/L (20-31); CHLORIDE LEVEL 106 MMOL/L (98-107); CREATININE FOR GFR 0.82 MG/DL (0.70-1.30); GLOMERULAR FILTRATION RATE > 60.0 (>42); GLUCOSE, FASTING 141 MG/DL (74-106); POTASSIUM SERUM 3.9 MMOL/L (3.5-5.1); SODIUM LEVEL 143 MMOL/L (136-145)
[2024-01-04 08:57] LABS: RSV AMPLIFICATION NEGATIVE (NEGATIVE)
[2024-01-04] MEDS: ACETAMINOPHEN 500 MG TAB PO ONE (09:58)
[2024-01-04 10:36] LABS: CK-MB VALUE MASS 7.9 NG/ML (<3.6)
[2024-01-04 10:38] LABS: ALBUMIN 3.1 G/DL (3.2-5.2); BILIRUBIN,DIRECT 0.5 MG/DL (<0.4); BILIRUBIN,TOTAL 1.3 MG/DL (0.3-1.2); TOTAL PROTEIN 6.1 G/DL (5.7-8.2)
[2024-01-04 10:40] LABS: MB/CK RELATIVE INDEX 0.93 (< OR =4)
[2024-01-04] MEDS ORDERED: ISOVUE-370 76% 100ML VIAL As Ordered ONE (10:58)
[2024-01-04] MEDS: cefTRIAXone SOD 1 GM in D5W MINI-BAG PLUS 50 ML IV ONE (12:22)
[2024-01-04] MEDS: NS 1,000 ML IV ONE (12:35)
[2024-01-04] MEDS ORDERED: MED REC IN PROGRESS XX SCH (12:55)
[2024-01-04 15:15] VITALS: BP 119/72; TEMP 97.7; O2SAT 99
[2024-01-04] MEDS ORDERED: MEMA7CAP PO (16:33)
[2024-01-04] MEDS ORDERED: DIVA500T9 PO (16:33)
[2024-01-04] MEDS ORDERED: HOME MED LIST COMPLETE! XX SCH (16:45)
[2024-01-04] MEDS: TAMSULOSIN 0.4 MG CAP PO SCH (20:55)
[2024-01-04] MEDS: ATORVASTATIN 20 MG TAB PO SCH (20:55)
[2024-01-04] MEDS: MEMANTINE 5MG TABLET (NAMENDA) PO SCH (20:55)
[2024-01-04] MEDS: KETOROLAC 30 MG/ML 1ML VIAL IV PRN (20:55)
[2024-01-04] MEDS: DIVALPROEX 500MG *ER* TAB PO SCH (20:55)
[2024-01-04] MEDS ORDERED: MEMANTINE 5MG TABLET (NAMENDA) PO SCH (21:00)
[2024-01-04 22:00] VITALS: BP 116/63; TEMP 98.1; O2SAT 96
[2024-01-04 23:56] VITALS: BP 116/64; TEMP 97.2; O2SAT 92
[2024-01-05 03:46] LABS: HEMATOCRIT 33.2 % (42.0-52.0); HEMOGLOBIN 10.8 g/dl (13.5-17.5); MEAN CORPUSCULAR HEMOGLOBIN 31.9 pg (27.0-33.0); MEAN CORPUSCULAR HGB CONC 32.5 g/dl (32.0-36.5); MEAN CORPUSCULAR VOLUME 97.9 fl (80.0-96.0); PLATELET COUNT, AUTOMATED 184 10^3/uL (150-450); RED BLOOD COUNT 3.39 10^6/uL (4.30-6.10); WHITE BLOOD COUNT 13.5 10^3/uL (4.0-10.0)
[2024-01-05 04:24] LABS: ALBUMIN 2.4 G/DL (3.2-5.2); ALKALINE PHOSPHATASE 59 U/L (46-116); ALT/SGPT 64 U/L (7.0-40); AST/SGOT 83 U/L (<34); BILIRUBIN,TOTAL 1.1 MG/DL (0.3-1.2); BLOOD UREA NITROGEN 19 MG/DL (9-23); CALCIUM LEVEL 7.9 MG/DL (8.3-10.6); CARBON DIOXIDE LEVEL 29 MMOL/L (20-31); CHLORIDE LEVEL 109 MMOL/L (98-107); CREATININE FOR GFR 0.77 MG/DL (0.70-1.30); GLOMERULAR FILTRATION RATE > 60.0 (>42); GLUCOSE, FASTING 127 MG/DL (74-106); MAGNESIUM LEVEL 1.6 MG/DL (1.8-2.4); POTASSIUM SERUM 3.6 MMOL/L (3.5-5.1); SODIUM LEVEL 144 MMOL/L (136-145); TOTAL PROTEIN 5.1 G/DL (5.7-8.2)
[2024-01-05] MEDS: MAG SULF 1GM/100ML (MAG RUN) 1 GM in IV 1 EA IV SCH (05:01)
[2024-01-05 05:53] VITALS: BP 109/50; TEMP 98.6; O2SAT 97
[2024-01-05] MEDS ORDERED: VANCOMYCIN HCL 1,000 MG, VIAL MATE ADAPTER 1 EACH in D5W 250 ML IV SCH (08:00)
[2024-01-05] MEDS: VANCOMYCIN HCL 750 MG, VIAL MATE ADAPTER 1 EACH in D5W 250 ML IV ONE ×2 (09:25→11:24)
[2024-01-05] MEDS: FERROUS SULFATE 325MG TAB PO SCH (09:25)
[2024-01-05] MEDS ORDERED: cefTRIAXone SOD 1 GM in D5W MINI-BAG PLUS 50 ML IV SCH (12:00)
[2024-01-05 14:00] VITALS: BP 122/60; TEMP 98.2; O2SAT 93
[2024-01-05] MEDS: cefTRIAXone SOD 2 GM in D5W MINI-BAG PLUS 50 ML IV SCH (14:18)
[2024-01-05] MEDS: VANCOMYCIN HCL 750 MG, VIAL MATE ADAPTER 1 EACH in D5W 250 ML IV SCH (18:13)
[2024-01-05] MEDS: LOPERAMIDE 2 MG CAPLET PO ONE (20:03)
[2024-01-05] MEDS: LACTOBACILLUS ACIDOPHILUS CAP (BACID) PO SCH (20:04)
[2024-01-05] MEDS: ACETAMINOPHEN TAB 650MG DOSE (2X325MG) PO PRN (20:58)
[2024-01-05 21:41] VITALS: BP 143/83; TEMP 97.3; O2SAT 97
[2024-01-05] MEDS: methocarbamoL 500 MG TAB PO PRN (23:21)
[2024-01-06 05:33] VITALS: BP 134/66; TEMP 97.7; O2SAT 98
[2024-01-06 06:23] LABS: BASO % 0.4 % (0.0-1.0); EOS # 0.1 10^3/uL (0.0-0.5); EOS % 1.1 % (0.0-3.0); HEMATOCRIT 32.8 % (42.0-52.0); HEMOGLOBIN 10.5 g/dl (13.5-17.5); LYMPH # 0.7 10^3/uL (1.5-5.0); LYMPH % 6.7 % (24.0-44.0); MEAN CORPUSCULAR HEMOGLOBIN 31.2 pg (27.0-33.0); MEAN CORPUSCULAR VOLUME 97.3 fl (80.0-96.0); MONO # 1.3 10^3/uL (0.0-0.8); MONO % 12.2 % (2.0-8.0); NEUTROPHILS # 8.6 10^3/uL (1.5-8.5); NEUTROPHILS % 79.2 % (36.0-66.0); PLATELET COUNT, AUTOMATED 183 10^3/uL (150-450); RED BLOOD COUNT 3.37 10^6/uL (4.30-6.10); WHITE BLOOD COUNT 10.9 10^3/uL (4.0-10.0)
[2024-01-06 06:53] LABS: BLOOD UREA NITROGEN 25 MG/DL (9-23); CALCIUM LEVEL 7.6 MG/DL (8.3-10.6); CARBON DIOXIDE LEVEL 29 MMOL/L (20-31); CHLORIDE LEVEL 105 MMOL/L (98-107); CREATININE FOR GFR 0.78 MG/DL (0.70-1.30); GLOMERULAR FILTRATION RATE > 60.0 (>42); GLUCOSE, FASTING 177 MG/DL (74-106); MAGNESIUM LEVEL 1.9 MG/DL (1.8-2.4); POTASSIUM SERUM 3.4 MMOL/L (3.5-5.1); SODIUM LEVEL 138 MMOL/L (136-145)
[2024-01-06] MEDS: ceFAZolin SOD 2 GM in IV 1 EA IV SCH (09:41)
[2024-01-06 15:00] VITALS: BP 134/62; TEMP 98.1; O2SAT 96
[2024-01-06 20:29] VITALS: BP 165/78; TEMP 97.9; O2SAT 93
[2024-01-07 05:52] VITALS: BP 153/79; TEMP 97.9; O2SAT 94
[2024-01-07 06:55] LABS: BASO % 0.3 % (0.0-1.0); EOS # 0.1 10^3/uL (0.0-0.5); EOS % 0.5 % (0.0-3.0); HEMOGLOBIN 10.8 g/dl (13.5-17.5); LYMPH # 0.7 10^3/uL (1.5-5.0); MEAN CORPUSCULAR HEMOGLOBIN 31.8 pg (27.0-33.0); MEAN CORPUSCULAR HGB CONC 32.7 g/dl (32.0-36.5); MEAN CORPUSCULAR VOLUME 97.1 fl (80.0-96.0); MONO # 1.1 10^3/uL (0.0-0.8); NEUTROPHILS # 7.7 10^3/uL (1.5-8.5); NEUTROPHILS % 80.7 % (36.0-66.0); PLATELET COUNT, AUTOMATED 206 10^3/uL (150-450); WHITE BLOOD COUNT 9.6 10^3/uL (4.0-10.0)
[2024-01-07 07:22] LABS: BLOOD UREA NITROGEN 18 MG/DL (9-23); CALCIUM LEVEL 7.7 MG/DL (8.3-10.6); CARBON DIOXIDE LEVEL 28 MMOL/L (20-31); CHLORIDE LEVEL 108 MMOL/L (98-107); CREATININE FOR GFR 0.71 MG/DL (0.70-1.30); GLOMERULAR FILTRATION RATE > 60.0 (>42); GLUCOSE, FASTING 154 MG/DL (74-106); MAGNESIUM LEVEL 1.8 MG/DL (1.8-2.4); POTASSIUM SERUM 3.6 MMOL/L (3.5-5.1); SODIUM LEVEL 143 MMOL/L (136-145)
[2024-01-07 14:00] VITALS: BP 101/71; TEMP 97.5; O2SAT 95
[2024-01-07] MEDS: MOM 30ML SUSPENSION UDC PO ONE (14:57)
[2024-01-07] MEDS: ANALGESIC BALM CRM 3OZ TOP SCH (14:58)
[2024-01-07 19:46] VITALS: BP 115/78; TEMP 97.4; O2SAT 97
[2024-01-07] MEDS: SENOKOT S TAB PO SCH (20:36)
[2024-01-08 05:07] VITALS: BP 147/75; TEMP 97.7; O2SAT 97
[2024-01-08 07:10] LABS: BASO % 0.4 % (0.0-1.0); EOS # 0.1 10^3/uL (0.0-0.5); EOS % 0.9 % (0.0-3.0); HEMATOCRIT 34.4 % (42.0-52.0); HEMOGLOBIN 11.1 g/dl (13.5-17.5); LYMPH # 0.7 10^3/uL (1.5-5.0); LYMPH % 6.3 % (24.0-44.0); MEAN CORPUSCULAR HEMOGLOBIN 31.7 pg (27.0-33.0); MEAN CORPUSCULAR HGB CONC 32.3 g/dl (32.0-36.5); MEAN CORPUSCULAR VOLUME 98.3 fl (80.0-96.0); MONO # 1.1 10^3/uL (0.0-0.8); MONO % 10.5 % (2.0-8.0); NEUTROPHILS # 8.6 10^3/uL (1.5-8.5); NEUTROPHILS % 81.1 % (36.0-66.0); PLATELET COUNT, AUTOMATED 229 10^3/uL (150-450); WHITE BLOOD COUNT 10.6 10^3/uL (4.0-10.0)
[2024-01-08 07:59] LABS: BLOOD UREA NITROGEN 19 MG/DL (9-23); CALCIUM LEVEL 8.1 MG/DL (8.3-10.6); CARBON DIOXIDE LEVEL 30 MMOL/L (20-31); CHLORIDE LEVEL 106 MMOL/L (98-107); CREATININE FOR GFR 0.68 MG/DL (0.70-1.30); GLOMERULAR FILTRATION RATE > 60.0 (>42); GLUCOSE, FASTING 144 MG/DL (74-106); MAGNESIUM LEVEL 1.9 MG/DL (1.8-2.4); POTASSIUM SERUM 3.9 MMOL/L (3.5-5.1); SODIUM LEVEL 139 MMOL/L (136-145)
[2024-01-08] MEDS: OLMESARTAN MEDOXOMIL 20 MG TAB (BENICAR) PO SCH (09:00)
[2024-01-08 14:00] VITALS: BP 172/88; TEMP 97.9; O2SAT 96
[2024-01-08 14:05] VITALS: BP 182/80
[2024-01-08 15:18] VITALS: BP 154/75
[2024-01-08] MEDS ORDERED: LIDOCAINE 2% 100MG/5ML SDV (FOR ANES.) As Ordered ONE (16:22)
[2024-01-08] MEDS ORDERED: propofoL 200 MG/20 ML VIAL As Ordered ONE (16:22)
[2024-01-08] MEDS: CETACAINE SPRAY 5GM As Ordered ONE (17:34)
[2024-01-08] MEDS ORDERED: HYDROMORPHONE HCL 0.5 MG/ 0.5 ML SYRINGE IV PRN (17:50)
[2024-01-08] MEDS ORDERED: LR 1,000 ML IV SCH (17:50)
[2024-01-08] MEDS ORDERED: ONDANSETRON 4MG 2ML VIAL IV PRN (17:50)
[2024-01-08] MEDS ORDERED: fentaNYL 100 MCG/2 ML INJECTION IV PRN (17:50)
[2024-01-08] MEDS ORDERED: oxyCODONE 5MG TAB PO PRN (17:50)
[2024-01-08 22:00] VITALS: BP 133/93; TEMP 97.7; O2SAT 90
[2024-01-08 23:07] LABS: PSA TOTAL <0.1 ng/mL (0.0-4.0)
[2024-01-09 05:27] VITALS: BP 149/88; TEMP 97.9; O2SAT 95
[2024-01-09 07:15] LABS: BASO # 0.1 10^3/uL (0.0-0.2); BASO % 0.5 % (0.0-1.0); EOS # 0.2 10^3/uL (0.0-0.5); EOS % 2.1 % (0.0-3.0); HEMATOCRIT 32.5 % (42.0-52.0); HEMOGLOBIN 10.7 g/dl (13.5-17.5); LYMPH # 1.1 10^3/uL (1.5-5.0); LYMPH % 10.2 % (24.0-44.0); MEAN CORPUSCULAR HEMOGLOBIN 31.8 pg (27.0-33.0); MEAN CORPUSCULAR HGB CONC 32.9 g/dl (32.0-36.5); MEAN CORPUSCULAR VOLUME 96.7 fl (80.0-96.0); MONO # 1.2 10^3/uL (0.0-0.8); MONO % 11.3 % (2.0-8.0); NEUTROPHILS # 8.1 10^3/uL (1.5-8.5); NEUTROPHILS % 75.2 % (36.0-66.0); PLATELET COUNT, AUTOMATED 241 10^3/uL (150-450); RED BLOOD COUNT 3.36 10^6/uL (4.30-6.10); WHITE BLOOD COUNT 10.7 10^3/uL (4.0-10.0)
[2024-01-09 07:33] LABS: BLOOD UREA NITROGEN 20 MG/DL (9-23); CALCIUM LEVEL 7.8 MG/DL (8.3-10.6); CARBON DIOXIDE LEVEL 30 MMOL/L (20-31); CHLORIDE LEVEL 106 MMOL/L (98-107); CPK CREATINE PHOSPHOKINASE 136 U/L (46-171); GLOMERULAR FILTRATION RATE > 60.0 (>42); GLUCOSE, FASTING 144 MG/DL (74-106); MAGNESIUM LEVEL 1.9 MG/DL (1.8-2.4); POTASSIUM SERUM 3.9 MMOL/L (3.5-5.1); SODIUM LEVEL 141 MMOL/L (136-145)
[2024-01-09] MEDS ORDERED: LEFLUNOMIDE 20MG TABLET (PATIENT'S OWN MED) PO SCH (09:00)
[2024-01-09] MEDS: ASCORBIC ACID 500 MG TAB PO SCH (09:47)
[2024-01-09] MEDS: VITAMIN D 1,000 INTERNATIONAL UNITS TABLET PO SCH (09:48)
[2024-01-09 09:53] VITALS: BP 155/76
[2024-01-09] MEDS ORDERED: DAPT500V8 IV (10:18)
[2024-01-09] MEDS ORDERED: SODIUM CHLORIDE 0.9% INJ 10 ML SYR IV PRN (11:55)
[2024-01-09 14:00] VITALS: BP 159/87; TEMP 97.7; O2SAT 92
[2024-01-09] MEDS: DAPTOmycin 750 MG in NS 50 ML IV SCH (14:25)
[2024-01-09] MEDS ORDERED: SODIUM CHLORIDE 0.9% INJ 10 ML SYR IV SCH (18:00)
[2024-01-09] MEDS ORDERED: CLOPIDOGREL 75 MG TAB PO SCH (21:00)
== END 2024-01-09 17:20 | disposition home health service (06) | DRG 872 ==
LOC: EDBD 05:23 → M ED 05:23 → M ED INP 14:05 → M MS5PR 15:05
PROVIDERS: ADMIT Internal Medicine Nephrology; ATTEND Student in an Organized Health Care Education/Training Program
PROC: B246ZZZ Ultrasonography of Right and Left Heart (ICD-10-PCS; principal; 2024-01-05)
PROC: B246ZZ4 Ultrasonography of Right and Left Heart, Transesophageal (ICD-10-PCS; 2024-01-08)
PROC: 02HV33Z Insertion of Infusion Device into Superior Vena Cava, Percutaneous Approach (ICD-10-PCS; 2024-01-09)
DX: A41.01 Sepsis due to Methicillin susceptible Staphylococcus aureus (principal); N39.0 Urinary tract infection, site not specified; M62.82 Rhabdomyolysis; K52.1 Toxic gastroenteritis and colitis; N13.4 Hydroureter; N13.30 Unspecified hydronephrosis; J98.11 Atelectasis; N13.9 Obstructive and reflux uropathy, unspecified; M06.9 Rheumatoid arthritis, unspecified; E78.5 Hyperlipidemia, unspecified; I10 Essential (primary) hypertension; F01.50 Vascular dementia, unspecified severity, without behavioral disturbance, psychotic disturbance, mood disturbance, and anxiety; F39 Unspecified mood [affective] disorder; L40.9 Psoriasis, unspecified; E55.9 Vitamin D deficiency, unspecified; K64.8 Other hemorrhoids; T36.1X5A Adverse effect of cephalosporins and other beta-lactam antibiotics, initial encounter; Z98.41 Cataract extraction status, right eye; Z98.42 Cataract extraction status, left eye; Z96.641 Presence of right artificial hip joint; Z85.828 Personal history of other malignant neoplasm of skin; Z85.46 Personal history of malignant neoplasm of prostate; Z85.038 Personal history of other malignant neoplasm of large intestine; Z98.1 Arthrodesis status; Z87.891 Personal history of nicotine dependence; Z79.82 Long term (current) use of aspirin; Z79.899 Other long term (current) drug therapy; Z91.048 Other nonmedicinal substance allergy status

== ENCOUNTER → 2024-01-14 | Outpatient (REF) | payer MEDICARE, BC, OTHER ==
[~2024-01-14] MED LIST changes: +DAPT500V8 IV; +MEMA7CAP PO
[2024-01-14 16:37] LABS: HEMATOCRIT 33.5 % (42.0-52.0); HEMOGLOBIN 10.7 g/dl (13.5-17.5); MEAN CORPUSCULAR HGB CONC 31.9 g/dl (32.0-36.5); MEAN CORPUSCULAR VOLUME 100.3 fl (80.0-96.0); PLATELET COUNT, AUTOMATED 342 10^3/uL (150-450); RED BLOOD COUNT 3.34 10^6/uL (4.30-6.10); WHITE BLOOD COUNT 8.4 10^3/uL (4.0-10.0)
[2024-01-14 16:42] LABS: CPK CREATINE PHOSPHOKINASE 73 U/L (46-171)
[2024-01-14 16:43] LABS: ALBUMIN 2.6 G/DL (3.2-5.2); ALKALINE PHOSPHATASE 159 U/L (46-116); ALT/SGPT 126 U/L (7.0-40); AST/SGOT 67 U/L (<34); BILIRUBIN,TOTAL 0.5 MG/DL (0.3-1.2); BLOOD UREA NITROGEN 15 MG/DL (9-23); CALCIUM LEVEL 7.9 MG/DL (8.3-10.6); CARBON DIOXIDE LEVEL 29 MMOL/L (20-31); CHLORIDE LEVEL 107 MMOL/L (98-107); CREATININE FOR GFR 0.62 MG/DL (0.70-1.30); GLOMERULAR FILTRATION RATE > 60.0 (>42); GLUCOSE, FASTING 179 MG/DL (74-106); POTASSIUM SERUM 3.9 MMOL/L (3.5-5.1); SODIUM LEVEL 141 MMOL/L (136-145); TOTAL PROTEIN 5.6 G/DL (5.7-8.2)
== END ==
LOC: M SHH 15:58
PROVIDERS: ATTEND Student in an Organized Health Care Education/Training Program
DX: A49.01 Methicillin susceptible Staphylococcus aureus infection, unspecified site (principal)

== ENCOUNTER → 2024-01-25 | Outpatient (CLI) | payer MEDICARE, BC, OTHER ==
[2024-01-25 12:53] LABS: BASO # 0.1 10^3/uL (0.0-0.2); BASO % 0.8 % (0.0-1.0); EOS # 0.1 10^3/uL (0.0-0.5); EOS % 1.7 % (0.0-3.0); HEMATOCRIT 39.1 % (42.0-52.0); HEMOGLOBIN 12.4 g/dl (13.5-17.5); LYMPH # 1.3 10^3/uL (1.5-5.0); LYMPH % 16.1 % (24.0-44.0); MEAN CORPUSCULAR HEMOGLOBIN 32.2 pg (27.0-33.0); MEAN CORPUSCULAR HGB CONC 31.7 g/dl (32.0-36.5); MEAN CORPUSCULAR VOLUME 101.6 fl (80.0-96.0); MONO % 12.4 % (2.0-8.0); NEUTROPHILS # 5.3 10^3/uL (1.5-8.5); NEUTROPHILS % 68.6 % (36.0-66.0); PLATELET COUNT, AUTOMATED 328 10^3/uL (150-450); RED BLOOD COUNT 3.85 10^6/uL (4.30-6.10); WHITE BLOOD COUNT 7.8 10^3/uL (4.0-10.0)
[2024-01-25 12:59] LABS: ERYTHROCYTE SEDIMENTATION RATE 45 mm/hr (0-20)
[2024-01-25 13:13] LABS: C REACTIVE PROTEIN QUANTITATIV < 0.40 MG/DL (<1.0)
[2024-01-25 13:14] LABS: ALBUMIN 3.4 G/DL (3.2-5.2); ALKALINE PHOSPHATASE 98 U/L (46-116); ALT/SGPT 29 U/L (7.0-40); AST/SGOT 23 U/L (<34); BILIRUBIN,TOTAL 0.8 MG/DL (0.3-1.2); BLOOD UREA NITROGEN 17 MG/DL (9-23); CARBON DIOXIDE LEVEL 31 MMOL/L (20-31); CHLORIDE LEVEL 108 MMOL/L (98-107); CREATININE FOR GFR 0.71 MG/DL (0.70-1.30); GLOMERULAR FILTRATION RATE > 60.0 (>42); GLUCOSE, FASTING 91 MG/DL (74-106); POTASSIUM SERUM 4.4 MMOL/L (3.5-5.1); SODIUM LEVEL 143 MMOL/L (136-145); TOTAL PROTEIN 6.7 G/DL (5.7-8.2)
== END ==
LOC: M WUC 11:12
PROVIDERS: ATTEND Internal Medicine Infectious Disease
DX: A49.01 Methicillin susceptible Staphylococcus aureus infection, unspecified site (principal)

== ENCOUNTER → 2024-04-28 | Outpatient (CLI) | payer MEDICARE, BC, OTHER ==
[~2024-04-28] MED LIST changes: +ATOR40TA75; +DONE10TA90; -OLME1TAB51 PO; +OLME1TAB92 PO
== END ==
LOC: M WUC 10:08
PROVIDERS: ATTEND Physician Assistant
DX: M67.432 Ganglion, left wrist (principal)

== ENCOUNTER 2024-05-02 09:56 | Emergency (ER) | payer MEDICARE, BC ==
[~2024-05-02] VITALS: Ht 185.4 cm; Wt 86.9 kg
[2024-05-02 12:10] VITALS: BP 141/72; TEMP 98.1; O2SAT 98
== END 2024-05-02 12:12 | disposition home or self-care (01) ==
LOC: M ED 09:56
DX: H11.31 Conjunctival hemorrhage, right eye (principal); I10 Essential (primary) hypertension; E78.5 Hyperlipidemia, unspecified; K21.9 Gastro-esophageal reflux disease without esophagitis; Z85.46 Personal history of malignant neoplasm of prostate; Z79.1 Long term (current) use of non-steroidal anti-inflammatories (NSAID); Z79.899 Other long term (current) drug therapy

== ENCOUNTER 2025-03-14 11:28 | Emergency (ER) | payer MEDICARE, BC ==
[~2025-03-14] VITALS: Ht 182.9 cm; Wt 85.9 kg
[~2025-03-14 11:28] MED LIST changes: -FLOM0.4C39 PO; +TAMS-18 PO
[2025-03-14 12:45] LABS: BASO # 0.1 10^3/uL (0.0-0.2); BASO % 0.7 % (0.0-1.0); EOS % 0.4 % (0.0-3.0); HEMATOCRIT 40.1 % (42.0-52.0); HEMOGLOBIN 13.6 g/dl (13.5-17.5); LYMPH # 0.9 10^3/uL (1.5-5.0); LYMPH % 10.4 % (24.0-44.0); MEAN CORPUSCULAR HEMOGLOBIN 32.5 pg (27.0-33.0); MEAN CORPUSCULAR HGB CONC 33.9 g/dl (32.0-36.5); MEAN CORPUSCULAR VOLUME 95.9 fl (80.0-96.0); MONO # 0.9 10^3/uL (0.0-0.8); NEUTROPHILS % 78.2 % (36.0-66.0); PLATELET COUNT, AUTOMATED 230 10^3/uL (150-450); RED BLOOD COUNT 4.18 10^6/uL (4.30-6.10)
[2025-03-14 12:59] LABS: KETONE, URINE MANUAL REFLEX OBSCURED mg/dL (NEGATIVE); PROTEIN, URINE MANUAL REFLEX 3+ mg/dL (NEGATIVE); SP GRAVITY,URINE MANUAL REFLEX 1.025 (1.002-1.035)
[2025-03-14 13:00] LABS: NITRITE, URINE MANUAL RFX NEGATIVE (NEGATIVE); UROBILINOGEN, UA MANUAL REFLEX OBSCURED mg/dl (NORMAL)
[2025-03-14 13:01] LABS: RBC, URINE MAN REFLEX TNTC /hpf (0-3)
[2025-03-14 13:03] LABS: HYALINE CAST, URINE RFX NONE SEEN /lpf (0-1); MICROSCOPIC EXAM RFX UNSPUN; SQUAMOUS EPITHELIAL URINE RFX SMALL AMOUNT /hpf (SMALL AMT); YEAST, URINE RFX SMALL AMOUNT
[2025-03-14 13:11] LABS: BLOOD UREA NITROGEN 18 MG/DL (9-23); CALCIUM LEVEL 9.2 MG/DL (8.3-10.6); CARBON DIOXIDE LEVEL 25 MMOL/L (20-31); CHLORIDE LEVEL 108 MMOL/L (98-107); CREATININE FOR GFR 0.76 MG/DL (0.70-1.30); GLOMERULAR FILTRATION RATE > 90.0 (>35); GLUCOSE, FASTING 131 MG/DL (74-106); POTASSIUM SERUM 4.1 MMOL/L (3.5-5.1); SODIUM LEVEL 144 MMOL/L (136-145)
[2025-03-14 14:40] LABS: ALBUMIN 3.7 G/DL (3.2-5.2); ALKALINE PHOSPHATASE 58 U/L (40-129); ALT/SGPT 45 U/L (7.0-40); AST/SGOT 43 U/L (<34); BILIRUBIN,DIRECT 0.5 MG/DL (<0.4); BILIRUBIN,TOTAL 1.5 MG/DL (0.3-1.2); TOTAL PROTEIN 6.4 G/DL (5.7-8.2)
[2025-03-14] MEDS ORDERED: CEFD300C PO (17:04)
[2025-03-14 17:16] VITALS: BP 159/72; TEMP 98.2; O2SAT 96
== END 2025-03-14 17:30 | disposition home or self-care (01) ==
LOC: M ED 11:28
DX: R31.0 Gross hematuria (principal); N13.30 Unspecified hydronephrosis; I10 Essential (primary) hypertension; E78.5 Hyperlipidemia, unspecified; Z79.1 Long term (current) use of non-steroidal anti-inflammatories (NSAID); Z79.2 Long term (current) use of antibiotics; Z79.899 Other long term (current) drug therapy

== ENCOUNTER 2025-06-16 18:02 | Inpatient (IN) | payer MEDICARE, BC ==
[~2025-06-16] VITALS: Ht 182.9 cm; Wt 84.1 kg
[~2025-06-16 18:02] MED LIST changes: -ATOR40TA75; +CEFD300C PO; -DONE10TA90; +DONE10TA90 PO; +MEMA14CA PO
[2025-06-16 18:28] LABS: VENOUS BASE EXCESS -0.9 (-2.0-2.0); VENOUS HCO3 21.7 MMOL/L (23.0-27.0); VENOUS O2 SATURATION 94.7 % (60.0-80.0); VENOUS PARTIAL PRESSURE CO2 30.3 mmHg (38.0-50.0); VENOUS PARTIAL PRESSURE O2 70.1 mmHg (30.0-50.0); VENOUS PH 7.472 UNITS (7.330-7.430); VENOUS STANDARD HCO3 23.6 MMOL/L; VENOUS TOTAL CO2 22.6 MMOL/L (24.0-28.0)
[2025-06-16 18:33] LABS: BASO # 0.1 10^3/uL (0.0-0.2); BASO % 0.5 % (0.0-1.0); EOS # 0.0 10^3/uL (0.0-0.5); EOS % 0.0 % (0.0-3.0); LYMPH # 0.6 10^3/uL (1.5-5.0); LYMPH % 3.9 % (24.0-44.0); MONO # 1.5 10^3/uL (0.0-0.8); MONO % 9.9 % (2.0-8.0); NEUTROPHILS # 12.5 10^3/uL (1.5-8.5); NEUTROPHILS % 85.2 % (36.0-66.0); PLATELET COUNT, AUTOMATED 246 10^3/uL (150-450)
[2025-06-16 19:06] LABS: ALT/SGPT 25 U/L (7.0-40); AST/SGOT 33 U/L (<34); CALCIUM LEVEL 9.8 MG/DL (8.3-10.6); CARBON DIOXIDE LEVEL 23 MMOL/L (20-31); CHLORIDE LEVEL 108 MMOL/L (98-107); CREATININE FOR GFR 1.89 MG/DL (0.70-1.30); GLOMERULAR FILTRATION RATE 35.4 (>35); POTASSIUM SERUM 4.3 MMOL/L (3.5-5.1); SODIUM LEVEL 145 MMOL/L (136-145)
[2025-06-16 19:11] LABS: OSMOLALITY SERUM 310 MOSM/KG (280-301)
[2025-06-16 19:38] LABS: ETHYL ALCOHOL (ETHANOL) < 0.003 % (0.000-0.010)
[2025-06-16 19:39] LABS: CK-MB VALUE MASS 4.1 NG/ML (<3.6)
[2025-06-16 19:40] LABS: CPK CREATINE PHOSPHOKINASE 121 U/L (46-171); MB/CK RELATIVE INDEX 3.38 (< OR =4)
[2025-06-16] MEDS ORDERED: HOME MED LIST COMPLETE! XX SCH (20:25)
[2025-06-16] MEDS ORDERED: CLOP75TA2 PO (20:25)
[2025-06-16] MEDS ORDERED: SPIR-10 PO (20:25)
[2025-06-16] MEDS: NS (Normal Saline) 0.9% 1,000 ML IV ONE (22:10)
[2025-06-16] MEDS: LIDOCAINE 2% 5 ML JELLY UROJET TOP ONE (22:10)
[2025-06-16] MEDS: cefTRIAXone SOD 1 GM in DEXTROSE 5% (D5W) ADV/MINI-BAG 50 ML IV ONE (22:10)
[2025-06-16 22:30] LABS: AMPHETAMINES LEVEL URINE NEGATIVE (NEGATIVE); BARBITURATES URINE NEGATIVE (NEGATIVE); BENZODIAZEPINES URINE NEGATIVE (NEGATIVE); COCAINE METABOLITE URINE NEGATIVE (NEGATIVE); METHADONE URINE NEGATIVE (NEGATIVE); OPIATES URINE NEGATIVE (NEGATIVE); PHENCYCLIDINE URINE NEGATIVE (NEGATIVE)
[2025-06-16 22:31] LABS: CANNABINOIDS URINE NEGATIVE (NEGATIVE)
[2025-06-16 22:58] LABS: SP GRAVITY,URINE MANUAL REFLEX 1.010 (1.002-1.035)
[2025-06-16 22:59] LABS: KETONE, URINE MANUAL REFLEX NEGATIVE (NEGATIVE); NITRITE, URINE MANUAL RFX NEGATIVE (NEGATIVE); PROTEIN, URINE MANUAL REFLEX 3+ mg/dL (NEGATIVE); UROBILINOGEN, UA MANUAL REFLEX NORMAL (NORMAL)
[2025-06-16 23:05] LABS: RBC, URINE MAN REFLEX TNTC /hpf (0-3)
[2025-06-16 23:07] LABS: SQUAMOUS EPITHELIAL URINE RFX NONE SEEN /hpf (SMALL AMT)
[2025-06-16 23:08] LABS: HYALINE CAST, URINE RFX NONE SEEN /lpf (0-1); MICROSCOPIC EXAM RFX UNSPUN
[2025-06-16] MEDS: ACETAMINOPHEN *IV* 1,000 MG in IV 1 EA IV ONE (23:56)
[2025-06-17] VITALS (7 sets, daily range): BP systolic 116–163; BP diastolic 80–96; TEMP 97.1–98.7; O2SAT 94–98
[2025-06-17 01:33] LABS: BASO # 0.0 10^3/uL (0.0-0.2); BASO % 0.3 % (0.0-1.0); EOS # 0.0 10^3/uL (0.0-0.5); EOS % 0.1 % (0.0-3.0); LYMPH # 0.6 10^3/uL (1.5-5.0); LYMPH % 4.4 % (24.0-44.0); MONO # 1.3 10^3/uL (0.0-0.8); MONO % 9.2 % (2.0-8.0); NEUTROPHILS # 11.7 10^3/uL (1.5-8.5); NEUTROPHILS % 85.6 % (36.0-66.0); PLATELET COUNT, AUTOMATED 267 10^3/uL (150-450)
[2025-06-17] MEDS ORDERED: MAALOX 30 ML SUSP *UDC PO PRN (02:40)
[2025-06-17] MEDS ORDERED: MOM 30 ML SUSPENSION UDC PO PRN (02:40)
[2025-06-17] MEDS ORDERED: ACETAMINOPHEN 325 MG TAB PO PRN (02:40)
[2025-06-17 04:13] LABS: CHOLESTEROL LEVEL 152.0 MG/DL (<200); CHOLESTEROL RISK RATIO 2.45 (<5); LDL CHOLESTEROL 81.7 MG/DL (<100); NON-HDL-C 90.1 MG/DL; TRIGLYCERIDES LEVEL 42.0 MG/DL (<150)
[2025-06-17 04:30] LABS: ESTIMATED AVERAGE GLUCOSE 105.0 MG/DL (60-110)
[2025-06-17] MEDS: DIVALPROEX 500 MG *ER* TAB PO SCH (08:50)
[2025-06-17] MEDS: FERROUS SULFATE 325 MG TAB PO SCH (08:50)
[2025-06-17] MEDS: FOLIC ACID 1 MG TAB PO SCH (08:51)
[2025-06-17] MEDS: VITAMIN D 1,000 INTERNATIONAL UNITS TABLET PO SCH (08:51)
[2025-06-17] MEDS: DOCUSATE SODIUM 100 MG CAPSULE PO SCH (08:51)
[2025-06-17] MEDS ORDERED: SPIRONOLACTONE 25 MG TAB PO SCH (09:00)
[2025-06-17] MEDS ORDERED: OLMESARTAN MEDOXOMIL 20 MG TAB PO SCH (09:00)
[2025-06-17 09:13] LABS: BASO # 0.1 10^3/uL (0.0-0.2); BASO % 0.3 % (0.0-1.0); EOS # 0.0 10^3/uL (0.0-0.5); EOS % 0.0 % (0.0-3.0); LYMPH # 0.6 10^3/uL (1.5-5.0); LYMPH % 4.4 % (24.0-44.0); MONO # 2.0 10^3/uL (0.0-0.8); MONO % 13.7 % (2.0-8.0); NEUTROPHILS # 11.7 10^3/uL (1.5-8.5); NEUTROPHILS % 81.0 % (36.0-66.0); PLATELET COUNT, AUTOMATED 276 10^3/uL (150-450)
[2025-06-17 09:17] LABS: CALCIUM LEVEL 9.2 MG/DL (8.3-10.6); CARBON DIOXIDE LEVEL 24.0 MMOL/L (20-31); CHLORIDE LEVEL 106.0 MMOL/L (98-107); CREATININE FOR GFR 3.19 MG/DL (0.70-1.30); GLOMERULAR FILTRATION RATE 18.9 (>35); MAGNESIUM LEVEL 1.9 MG/DL (1.8-2.4); POTASSIUM SERUM 4.3 MMOL/L (3.5-5.1); SODIUM LEVEL 142.0 MMOL/L (136-145)
[2025-06-17] MEDS: **hydrALAZINE** 50 MG TAB PO ONE (09:33)
[2025-06-17] MEDS: amLODIPine 5 MG TAB PO ONE (09:33)
[2025-06-17] MEDS: NS (Normal Saline) 0.9% 1,000 ML IV SCH (11:24)
[2025-06-17] MEDS ORDERED: LIDOCAINE 2% 5 ML JELLY UROJET As Ordered ONE (14:26)
[2025-06-17] MEDS: LIDOCAINE 2% 5 ML JELLY UROJET TOP ONE (15:17)
[2025-06-17] MEDS: DONEPEZIL 5 MG TAB PO SCH (18:27)
[2025-06-17] MEDS: **hydrALAZINE HCL** 25 MG TAB PO SCH (18:27)
[2025-06-17] MEDS: ATORVASTATIN 20 MG TAB PO SCH (20:18)
[2025-06-17] MEDS: TAMSULOSIN 0.4 MG CAP PO SCH (20:18)
[2025-06-18] VITALS (14 sets, daily range): BP systolic 116–170; BP diastolic 60–88; TEMP 97.1–98.7; O2SAT 94–100
[2025-06-18 05:40] LABS: BASO # 0.1 10^3/uL (0.0-0.2); BASO % 0.4 % (0.0-1.0); EOS # 0.0 10^3/uL (0.0-0.5); EOS % 0.1 % (0.0-3.0); LYMPH # 0.9 10^3/uL (1.5-5.0); LYMPH % 6.7 % (24.0-44.0); MONO # 1.6 10^3/uL (0.0-0.8); MONO % 12.1 % (2.0-8.0); NEUTROPHILS # 10.4 10^3/uL (1.5-8.5); NEUTROPHILS % 80.3 % (36.0-66.0); PLATELET COUNT, AUTOMATED 231 10^3/uL (150-450)
[2025-06-18 06:11] LABS: CALCIUM LEVEL 8.8 MG/DL (8.3-10.6); CARBON DIOXIDE LEVEL 25.0 MMOL/L (20-31); CHLORIDE LEVEL 110.0 MMOL/L (98-107); CREATININE FOR GFR 3.47 MG/DL (0.70-1.30); GLOMERULAR FILTRATION RATE 17.1 (>35); MAGNESIUM LEVEL 2.0 MG/DL (1.8-2.4); POTASSIUM SERUM 4.5 MMOL/L (3.5-5.1); SODIUM LEVEL 147.0 MMOL/L (136-145)
[2025-06-18] MEDS: amLODIPine 5 MG TAB PO SCH (09:29)
[2025-06-18] MEDS ORDERED: LIDOCAINE 2% 100 MG/5 ML SDV (FOR ANES.) As Ordered ONE (16:56)
[2025-06-18] MEDS ORDERED: dexAMETHasone 4 MG/ML 1 ML VIAL As Ordered ONE (16:57)
[2025-06-18] MEDS ORDERED: ONDANSETRON 4MG 2ML VIAL As Ordered ONE (16:57)
[2025-06-18] MEDS ORDERED: KETOROLAC 30 MG/ML 1 ML VIAL As Ordered ONE (16:57)
[2025-06-18] MEDS: ceFAZolin SOD 2 GM in DEXTROSE 5% (D5W) ADV/MINI-BAG 50 ML IV ONE (17:15)
[2025-06-18] MEDS ORDERED: ACETAMINOPHEN 1000MG/100ML IV BAG As Ordered ONE (17:52)
[2025-06-19] VITALS (9 sets, daily range): BP systolic 118–142; BP diastolic 62–77; TEMP 93.3–97.5; O2SAT 95–99
[2025-06-19 05:27] LABS: BASO # 0.0 10^3/uL (0.0-0.2); BASO % 0.1 % (0.0-1.0); EOS # 0.0 10^3/uL (0.0-0.5); EOS % 0.0 % (0.0-3.0); LYMPH # 0.5 10^3/uL (1.5-5.0); LYMPH % 4.7 % (24.0-44.0); MONO # 0.7 10^3/uL (0.0-0.8); MONO % 6.4 % (2.0-8.0); NEUTROPHILS # 9.5 10^3/uL (1.5-8.5); NEUTROPHILS % 88.3 % (36.0-66.0); PLATELET COUNT, AUTOMATED 245 10^3/uL (150-450)
[2025-06-19 05:50] LABS: CALCIUM LEVEL 8.4 MG/DL (8.3-10.6); CARBON DIOXIDE LEVEL 23.0 MMOL/L (20-31); CHLORIDE LEVEL 109.0 MMOL/L (98-107); CREATININE FOR GFR 2.38 MG/DL (0.70-1.30); GLOMERULAR FILTRATION RATE 26.9 (>35); MAGNESIUM LEVEL 1.9 MG/DL (1.8-2.4); POTASSIUM SERUM 4.4 MMOL/L (3.5-5.1); SODIUM LEVEL 144.0 MMOL/L (136-145)
[2025-06-20 04:03] VITALS: BP 128/61; TEMP 97; O2SAT 95
[2025-06-20 05:53] VITALS: BP 128/61
[2025-06-20 07:15] VITALS: BP 133/64; TEMP 98.4; O2SAT 95
[2025-06-20 08:31] LABS: BASO # 0.1 10^3/uL (0.0-0.2); BASO % 0.6 % (0.0-1.0); EOS # 0.5 10^3/uL (0.0-0.5); EOS % 5.1 % (0.0-3.0); LYMPH # 0.9 10^3/uL (1.5-5.0); LYMPH % 9.9 % (24.0-44.0); MONO # 1.0 10^3/uL (0.0-0.8); MONO % 11.6 % (2.0-8.0); NEUTROPHILS # 6.4 10^3/uL (1.5-8.5); NEUTROPHILS % 72.3 % (36.0-66.0); PLATELET COUNT, AUTOMATED 195 10^3/uL (150-450)
[2025-06-20 08:52] LABS: CALCIUM LEVEL 8.5 MG/DL (8.3-10.6); CARBON DIOXIDE LEVEL 23.0 MMOL/L (20-31); CHLORIDE LEVEL 110.0 MMOL/L (98-107); CREATININE FOR GFR 1.52 MG/DL (0.70-1.30); GLOMERULAR FILTRATION RATE 46.0 (>35); MAGNESIUM LEVEL 1.6 MG/DL (1.8-2.4); POTASSIUM SERUM 4.4 MMOL/L (3.5-5.1); SODIUM LEVEL 144.0 MMOL/L (136-145)
[2025-06-20] MEDS ORDERED: ECOT81TA5 PO (09:36)
[2025-06-20] MEDS ORDERED: NORV5TAB PO (09:41)
[2025-06-20] MEDS ORDERED: HYDR25TA88 PO (09:41)
== END 2025-06-20 12:09 | disposition home or self-care (01) | DRG 668 ==
LOC: M ED 18:02 → EDBD 18:02 → M ED INP 06-17 02:38 → M PCU 06-17 14:53
PROVIDERS: ADMIT Internal Medicine; ATTEND Internal Medicine
PROC: 0TCB8ZZ Extirpation of Matter from Bladder, Via Natural or Artificial Opening Endoscopic (ICD-10-PCS; 2025-06-18)
PROC: 0T7D8ZZ Dilation of Urethra, Via Natural or Artificial Opening Endoscopic (ICD-10-PCS; 2025-06-18)
PROC: 0T5B8ZZ Destruction of Bladder, Via Natural or Artificial Opening Endoscopic (ICD-10-PCS; principal; 2025-06-18 08:15)
DX: N30.41 Irradiation cystitis with hematuria (principal); G93.41 Metabolic encephalopathy; N13.0 Hydronephrosis with ureteropelvic junction obstruction; N17.9 Acute kidney failure, unspecified; E78.5 Hyperlipidemia, unspecified; I12.9 Hypertensive chronic kidney disease with stage 1 through stage 4 chronic kidney disease, or unspecified chronic kidney disease; M54.50 Low back pain, unspecified; G89.29 Other chronic pain; M06.9 Rheumatoid arthritis, unspecified; L40.9 Psoriasis, unspecified; F01.50 Vascular dementia, unspecified severity, without behavioral disturbance, psychotic disturbance, mood disturbance, and anxiety; E55.9 Vitamin D deficiency, unspecified; I16.0 Hypertensive urgency; D50.9 Iron deficiency anemia, unspecified; N18.9 Chronic kidney disease, unspecified; N40.0 Benign prostatic hyperplasia without lower urinary tract symptoms; Z98.1 Arthrodesis status; Z96.641 Presence of right artificial hip joint; Z90.49 Acquired absence of other specified parts of digestive tract; Z85.038 Personal history of other malignant neoplasm of large intestine; Z85.46 Personal history of malignant neoplasm of prostate; Z98.0 Intestinal bypass and anastomosis status; Z85.828 Personal history of other malignant neoplasm of skin; Z98.41 Cataract extraction status, right eye; Z98.42 Cataract extraction status, left eye; Z86.73 Personal history of transient ischemic attack (TIA), and cerebral infarction without residual deficits

== ENCOUNTER → 2025-08-11 | Outpatient (REF) | payer MEDICARE, BC ==
[~2025-08-11] MED LIST changes: +CLOP75TA2 PO; +ECOT81TA5 PO; +HYDR25TA88 PO; +NORV5TAB PO; +SPIR-10 PO
== END ==
LOC: M SFHCDERM 16:57
PROVIDERS: ATTEND Dermatology
DX: T86.821 Skin graft (allograft) (autograft) failure (principal)

== ENCOUNTER → 2025-08-26 | Outpatient (CLI) | payer MEDICARE, BC | LOC: M ONCR 12:48 | PROVIDERS: ATTEND General Practice | DX: C44.329 Squamous cell carcinoma of skin of other parts of face (principal); C61 Malignant neoplasm of prostate; Z98.890 Other specified postprocedural states; Z85.038 Personal history of other malignant neoplasm of large intestine; Z91.048 Other nonmedicinal substance allergy status; Z79.82 Long term (current) use of aspirin; Z79.899 Other long term (current) drug therapy ==

== ENCOUNTER 2025-09-17 10:49 | Outpatient (RCR) | payer MEDICARE, BC ==
[~2025-09-17 10:49] MED LIST changes: +DIAZ2TAB PO
== END 2025-10-04 ==
LOC: M ONCR 10:49
PROVIDERS: ATTEND General Practice
DX: Z51.0 Encounter for antineoplastic radiation therapy (principal); C44.320 Squamous cell carcinoma of skin of unspecified parts of face

== ENCOUNTER 2025-11-03 13:23 | Outpatient (RCR) | payer MEDICARE, BC | END 2025-11-04 | LOC: M ONCR 13:23 | PROVIDERS: ATTEND General Practice | DX: Z51.0 Encounter for antineoplastic radiation therapy (principal); C44.320 Squamous cell carcinoma of skin of unspecified parts of face ==